=== PATIENT | female | born 1945 | race Asian ===

== ENCOUNTER 2018-05-01 06:45 | Day surgery (SDC) | payer MEDICARE, OTHER ==
[~2018-05-01] VITALS: Ht 149.9 cm; Wt 60.0 kg
[~2018-05-01 06:45] MED LIST: DICLOFENAC SODIUM 0.1% 2.5 ML OPHTHALMIC SOLUTION ONE; FOLIC ACID PO; LEVO75 PO; METO25XL PO; MOXIFLOXACIN HCL 0.5% 3 ML OPHTHALMIC SOLUTION ONE; OS500 PO; PHENYLEPHRINE HCL 2.5% 2 ML OPHTHALMIC SOLUTION ONE; PRAV80TA PO; PREDAOS OS; RANO500T3 PO; RINGERS SOLUTION,LACTATED 500 ML IV ONE; SITA1TAB2 PO; TROPICAMIDE 1% 2 ML OPHTHALMIC SOLUTION ONE; VALS80TA2 PO
[2018-05-01] MEDS ORDERED: LIDOCAINE/PF 1% 2 ML VIAL INJ ONE (06:46)
[2018-05-01] MEDS ORDERED: POVIDONE-IODINE 10% 15 ML SOLUTION UD TP ONE (06:46)
[2018-05-01] MEDS ORDERED: HYALURONATE SOD/CHONDROITIN SOD 0.5 ML VIAL IO ONE (06:46)
[2018-05-01] MEDS ORDERED: DEXAMETHASONE SOD PHOS 4 MG/ML VIAL IVP ONE (06:46)
[2018-05-01] MEDS ORDERED: TETRACAINE HCL VISCOUS 0.5% 0.6 ML OPHTHALMIC SOLUTION OS ONE (06:46)
[2018-05-01] MEDS ORDERED: HYALURONATE SODIUM 12 MG/ML 0.8 ML SYRINGE IO ONE (06:46)
[2018-05-01] MEDS ORDERED: DICLOFENAC SODIUM 0.1% 2.5 ML OPHTHALMIC SOLUTION OD ONE (07:30)
[2018-05-01] MEDS ORDERED: MOXIFLOXACIN HCL 0.5% 3 ML OPHTHALMIC SOLUTION OD ONE (07:30)
[2018-05-01] MEDS ORDERED: RINGERS SOLUTION,LACTATED 500 ML IV ONE (07:30)
[2018-05-01] MEDS ORDERED: SITA100 PO (08:08)
[2018-05-01] MEDS ORDERED: LORA10TA7 PO (08:08)
[2018-05-01 08:19] LABS: GLUCOMETER DEV NAME(LOC) SDS 5; GLUCOSE,POINT OF CARE 146 MG/DL (70-110)
[2018-05-01] MEDS: PHENYLEPHRINE HCL 2.5% 2 ML OPHTHALMIC SOLUTION OD SCH ×2 (08:21→08:27)
[2018-05-01] MEDS: TROPICAMIDE 1% 2 ML OPHTHALMIC SOLUTION OD SCH ×2 (08:21→08:27)
[2018-05-01] MEDS ORDERED: MIDAZOLAM HCL 2 MG/2 ML VIAL IVP ONE (12:00)
[2018-05-01] MEDS ORDERED: FentaNYL CITRATE-PF 100 MCG/2 ML VIAL IVP ONE (12:00)
== END 2018-05-01 11:10 | disposition home or self-care (01) ==
LOC: SURGERY 06:45
PROVIDERS: ATTEND Specialist
DX: E11.36 Type 2 diabetes mellitus with diabetic cataract (principal); H25.011 Cortical age-related cataract, right eye; I10 Essential (primary) hypertension; E89.0 Postprocedural hypothyroidism; M19.90 Unspecified osteoarthritis, unspecified site; E78.00 Pure hypercholesterolemia, unspecified; I44.0 Atrioventricular block, first degree; Z90.49 Acquired absence of other specified parts of digestive tract; Z98.890 Other specified postprocedural states; Z79.899 Other long term (current) drug therapy
CPT/HCPCS: 65785; 66984; 82962; 93005; C1780; J1100; J2250; J3010; J3490 ×2; J7120

== ENCOUNTER 2018-10-08 18:03 | Emergency (ER) | payer MEDICARE, OTHER ==
[~2018-10-08] VITALS: Ht 154.9 cm; Wt 65.9 kg
[~2018-10-08 18:03] MED LIST changes: -DICLOFENAC SODIUM 0.1% 2.5 ML OPHTHALMIC SOLUTION ONE; +LORA10TA7 PO; -MOXIFLOXACIN HCL 0.5% 3 ML OPHTHALMIC SOLUTION ONE; -PHENYLEPHRINE HCL 2.5% 2 ML OPHTHALMIC SOLUTION ONE; -RINGERS SOLUTION,LACTATED 500 ML IV ONE; +SITA100 PO; -SITA1TAB2 PO; -TROPICAMIDE 1% 2 ML OPHTHALMIC SOLUTION ONE
[2018-10-08] MEDS ORDERED: ALBUTEROL SULFATE 2.5 MG/0.5 ML NEB SOLUTION NEB ONE (18:30)
[2018-10-08] MEDS ORDERED: IPRATROPIUM BROMIDE 0.5 MG/2.5 ML NEB SOLUTION NEB ONE (18:30)
[2018-10-08 21:20] LABS: BASOPHILS % (AUTO) 0.4 % (0.0-2.0); HEMATOCRIT 37.9 % (36-46); HEMOGLOBIN 12.9 g/dL (12.0-16.0); LYMPHOCYTES # (AUTO) 1.6 K/uL (1.0-4.8); LYMPHOCYTES % (AUTO) 19.3 % (22.0-44.0); MEAN CORPUSCULAR HEMOGLOBIN 34.6 pg (26.0-34.0); MEAN CORPUSCULAR HGB CONC 34.1 G/dL (31.0-37.0); MEAN CORPUSCULAR VOLUME 101 fL (80-100); MONOCYTES # (AUTO) 0.6 K/uL (0.1-1.0); MONOCYTES % (AUTO) 7.7 % (2.0-9.0); NEUTROPHILS # (AUTO) 4.5 K/uL (1.8-7.7); NEUTROPHILS % (AUTO) 55.7 % (40.0-70.0); PLATELET COUNT (AUTO) 196 K/uL (150-450); RED BLOOD CELL COUNT(AUTO) 3.74 MIL/uL (4.00-5.20); RED CELL DISTRIBUTION WIDTH 14.2 % (11.5-14.5)
[2018-10-08 21:24] LABS: EOSINOPHILS % (AUTO) 16.9 % (1.0-6.0)
[2018-10-08 21:58] LABS: CALCIUM, TOTAL 9.7 mg/dL (8.8-10.5); CREATININE 1.62 mg/dL (0.60-1.30); POTASSIUM 4.5 mmol/L (3.5-5.1)
[2018-10-08 22:22] LABS: ALBUMIN 4.3 g/dL (3.4-5.0); BILIRUBIN,TOTAL 0.4 mg/dL (0.1-1.0); TOTAL PROTEIN, SERUM 9.1 g/dL (6.4-8.2)
[2018-10-08 22:47] VITALS: BP 120/63
== END 2018-10-08 23:10 | disposition home or self-care (01) ==
LOC: EMS 18:04
DX: J40 Bronchitis, not specified as acute or chronic (principal); E11.9 Type 2 diabetes mellitus without complications; E78.00 Pure hypercholesterolemia, unspecified; I10 Essential (primary) hypertension; Z79.84 Long term (current) use of oral hypoglycemic drugs; Z79.899 Other long term (current) drug therapy
CPT/HCPCS: 93005; 94640

== ENCOUNTER 2022-03-16 16:53 | Emergency (ER) | payer MEDICARE, OTHER ==
[~2022-03-16] VITALS: Ht 157.5 cm; Wt 54.5 kg
[2022-03-16 18:29] LABS: BASOPHILS % (AUTO) 0.4 % (0.0-2.0); HEMATOCRIT 38.2 % (36-46); HEMOGLOBIN 12.9 g/dL (12.0-16.0); LYMPHOCYTES # (AUTO) 1.4 K/uL (1.0-4.8); LYMPHOCYTES % (AUTO) 20.4 % (22.0-44.0); MEAN CORPUSCULAR HEMOGLOBIN 34.6 pg (26.0-34.0); MEAN CORPUSCULAR HGB CONC 33.8 G/dL (31.0-37.0); MEAN CORPUSCULAR VOLUME 102 fL (80-100); MONOCYTES # (AUTO) 0.7 K/uL (0.1-1.0); NEUTROPHILS # (AUTO) 3.2 K/uL (1.8-7.7); NEUTROPHILS % (AUTO) 47.3 % (40.0-70.0); PLATELET COUNT (AUTO) 187 K/uL (150-450); RED BLOOD CELL COUNT(AUTO) 3.73 MIL/uL (4.00-5.20); RED CELL DISTRIBUTION WIDTH 13.4 % (11.5-14.5)
[2022-03-16 18:30] LABS: EOSINOPHILS % (AUTO) 20.9 % (1.0-6.0)
[2022-03-16 18:40] LABS: BILIRUBIN,TOTAL 0.6 mg/dL (0.1-1.0); CALCIUM, TOTAL 9.2 mg/dL (8.8-10.5); CREATININE 1.86 mg/dL (0.60-1.30); POTASSIUM 4.5 mmol/L (3.5-5.1); TOTAL PROTEIN, SERUM 8.3 g/dL (6.4-8.2)
[2022-03-16] MEDS ORDERED: INSULIN REGULAR, HUMAN 100 UNITS/ML IVP ONE (19:00)
[2022-03-16] MEDS ORDERED: SODIUM CHLORIDE 0.9% 500 ML IV ONE (19:00)
[2022-03-16 20:57] VITALS: BP 138/67
== END 2022-03-16 21:15 | disposition home or self-care (01) ==
LOC: EMS 17:13
DX: S20.212A Contusion of left front wall of thorax, initial encounter (principal); S00.83XA Contusion of other part of head, initial encounter; E11.9 Type 2 diabetes mellitus without complications; E78.00 Pure hypercholesterolemia, unspecified; I10 Essential (primary) hypertension; V87.8XXA Person injured in other specified noncollision transport accidents involving motor vehicle (traffic), initial encounter; Y93.89 Activity, other specified; Y92.89 Other specified places as the place of occurrence of the external cause; Y99.8 Other external cause status
CPT/HCPCS: 99285; 96374; 70450; 96361; 80053; 85025; 36415; 71101; J1815; J7040

== ENCOUNTER 2023-01-16 17:19 | Emergency (ER) | payer OTHER ==
[~2023-01-16] VITALS: Ht 152.4 cm; Wt 56.8 kg
[~2023-01-16 17:19] MED LIST changes: +RANO500T27 PO; -RANO500T3 PO
[2023-01-16 17:33] VITALS: TEMP 97.8
[2023-01-16] MEDS ORDERED: SODIUM CHLORIDE 0.9% 1,000 ML IV ONE (18:00)
[2023-01-16] MEDS ORDERED: CYCLOBENZAPRINE HCL 10 MG TABLET PO ONE (18:00)
[2023-01-16] MEDS ORDERED: KETOROLAC TROMETHAMINE 30 MG/ML VIAL IVP ONE (18:00)
[2023-01-16] MEDS ORDERED: LIDOCAINE 5% TRANSDERMAL PATCH TD ONE (18:00)
[2023-01-16] MEDS ORDERED: PRAV80TA21 PO (18:04)
[2023-01-16] MEDS ORDERED: DOCU-349 PO (18:04)
[2023-01-16] MEDS ORDERED: ASPI-1444 PO (18:04)
[2023-01-16] MEDS ORDERED: FOLI-130 PO (18:04)
[2023-01-16] MEDS ORDERED: EMPA25TA3 PO (18:04)
[2023-01-16] MEDS ORDERED: METO-408 PO (18:04)
[2023-01-16] MEDS ORDERED: MONT-40 PO (18:04)
[2023-01-16] MEDS ORDERED: BISA10SU11 PR (18:04)
[2023-01-16] MEDS ORDERED: VALS40TA11 PO (18:04)
[2023-01-16] MEDS ORDERED: GABA-529 PO (18:04)
[2023-01-16] MEDS ORDERED: SODI650T PO (18:04)
[2023-01-16 18:31] LABS: CREATININE 1.72 mg/dL (0.60-1.30); POTASSIUM 4.2 mmol/L (3.5-5.1)
[2023-01-16] MEDS ORDERED: INSULIN REGULAR, HUMAN 100 UNITS/ML IVP ONE (18:45)
[2023-01-16 19:56] LABS: GLUCOMETER DEV NAME(LOC) ER.6
[2023-01-16] MEDS ORDERED: ACET-3385 PO (20:02)
[2023-01-16] MEDS ORDERED: CYCL-448 PO (20:02)
[2023-01-16] MEDS ORDERED: LIDO700A15 TP (20:02)
[2023-01-16 20:12] VITALS: BP 136/69; PULSE 78; RESP 21
== END 2023-01-16 20:23 | disposition home or self-care (01) ==
LOC: EMS 17:19
DX: M54.50 Low back pain, unspecified (principal); E11.65 Type 2 diabetes mellitus with hyperglycemia; E78.00 Pure hypercholesterolemia, unspecified; I10 Essential (primary) hypertension
CPT/HCPCS: 99284; 96374; 96361; 80048; 82962; 36415; 72100; J1885; J7030; J1815

== ENCOUNTER 2024-06-20 18:55 | Inpatient (IN) | payer OTHER ==
[~2024-06-20] VITALS: Ht 149.9 cm; Wt 60.5 kg
[~2024-06-20 18:55] MED LIST changes: +ACET-3385 PO; +ASPI-1444 PO; +ATROPINE SULFATE 0.1 MG/ML 10 ML SYRINGE IVP ONE; +BISA10SU11 PR; +CYCL-448 PO; +DOCU-349 PO; +DOPamine HCL/D5W 400 MG/250 ML IV BAG IV ONE; +EMPA25TA3 PO; +FOLI-130 PO; -FOLIC ACID PO; +GABA-529 PO; +LIDO700A15 TP; +METO-408 PO; -METO25XL PO; +MONT-40 PO; -PRAV80TA PO; +PRAV80TA21 PO; -PREDAOS OS; +SODI650T PO; +SODIUM BICARBONATE [ADULT] 8.4% 50 MEQ/50 ML SYRINGE IVP ONE; +VALS40TA11 PO; -VALS80TA2 PO
[2024-06-20 19:32] LABS: BASOPHILS % (AUTO) 0.5 % (0.0-2.0); EOSINOPHILS % (AUTO) 0.1 % (1.0-6.0); HEMATOCRIT 36.4 % (36-46); HEMOGLOBIN 11.6 g/dL (12.0-16.0); LYMPHOCYTES # (AUTO) 1.4 K/uL (1.0-4.8); LYMPHOCYTES % (AUTO) 21.1 % (22.0-44.0); MEAN CORPUSCULAR HEMOGLOBIN 33.5 pg (26.0-34.0); MEAN CORPUSCULAR VOLUME 105 fL (80-100); MONOCYTES # (AUTO) 0.3 K/uL (0.1-1.0); MONOCYTES % (AUTO) 5.2 % (2.0-9.0); NEUTROPHILS # (AUTO) 4.7 K/uL (1.8-7.7); NEUTROPHILS % (AUTO) 73.1 % (40.0-70.0); PLATELET COUNT (AUTO) 184 K/uL (150-450); RED BLOOD CELL COUNT(AUTO) 3.47 MIL/uL (4.00-5.20); RED CELL DISTRIBUTION WIDTH 14.8 % (11.5-14.5); WHITE BLOOD COUNT (AUTO) 6.4 K/uL (4.5-11.0)
[2024-06-20] MEDS: 0.9% SODIUM CHLORIDE 10 ML SYRINGE IVP PRN (19:50)
[2024-06-20] MEDS: SODIUM CHLORIDE 0.9% 1,550 ML IV ONE (19:51)
[2024-06-20 19:52] LABS: ALBUMIN 3.3 g/dL (3.4-5.0); BILIRUBIN,DIRECT 1.1 mg/dL (0.00-0.20); BILIRUBIN,TOTAL 2.2 mg/dL (0.1-1.0); CALCIUM, TOTAL 8.1 mg/dL (8.8-10.5); CREATININE 2.89 mg/dL (0.60-1.30); POTASSIUM 5.4 mmol/L (3.5-5.1); TOTAL PROTEIN, SERUM 6.8 g/dL (6.4-8.2)
[2024-06-20] MEDS: CALCIUM CHLORIDE 100 MG/ML 10 ML VIAL IVP ONE (20:10)
[2024-06-20 20:26] LABS: APPEARANCE,URINE CLEAR (CLEAR); BILIRUBIN,URINE NEGATIVE (NEGATIVE); COLOR,URINE YELLOW (YELLOW); GLUCOSE, URINE (UA) >=1000 mg/dL (NEGATIVE); KETONES,URINE NEGATIVE (NEGATIVE); LEUKOCYTE ESTERASE ,URINE NEGATIVE (NEGATIVE); NITRATE,URINE NEGATIVE (NEGATIVE); OCCULT BLOOD,URINE NEGATIVE (NEGATIVE); PROTEIN,URINE 30-70 mg/dL (NEGATIVE); SPECIFIC GRAVITIY, URINE 1.025 (1.003-1.030); UROBILINOGEN,URINE <=1.0 mg/dL (<=1.0)
[2024-06-20] MEDS ORDERED: HYDROCORTISONE SOD SUCC 100 MG/2 ML VIAL IVP ONE (20:45)
[2024-06-20] MEDS ORDERED: ATROPINE SULFATE 1 MG/ML VIAL IVP ONE (20:45)
[2024-06-20 20:48] LABS: LACTIC ACID 10.4 mmol/L (0.4-2.0)
[2024-06-20 21:00] VITALS: PULSE 61; RESP 20; O2SAT 97
[2024-06-20 21:10] LABS: BACTERIA,URINE None Seen /HPF (None Seen); RBC,URINE 0-2 /HPF (0-2); WBC,URINE 0-2 /HPF (0-5)
[2024-06-20] MEDS: ATROPINE SULFATE 0.1 MG/ML 10 ML SYRINGE IVP ONE (21:12)
[2024-06-20] MEDS: NOREPINEPHRINE 8 MG/0.9 % NACL 250 ML IV PRN (21:13)
[2024-06-20] MEDS ORDERED: ACETAMINOPHEN 325 MG TABLET PO PRN (21:15)
[2024-06-20] MEDS: SODIUM BICARBONATE [ADULT] 8.4% 50 MEQ/50 ML SYRINGE IVP ONE (21:17)
[2024-06-20] MEDS: HYDROCORTISONE SOD SUCC 250 MG/2 ML VIAL IVP ONE (21:19)
[2024-06-20] MEDS: SODIUM CHLORIDE 0.9% 1,000 ML IV ONE (21:21)
[2024-06-20] MEDS: INSULIN REGULAR, HUMAN 100 UNITS/ML IVP ONE (21:31)
[2024-06-20] MEDS: CefTRIAXone 1 GM/DEXTROSE 50 ML IV SCH (21:32)
[2024-06-20] MEDS: DOPamine 400MG/D5W[STANDARD] 250 ML IV PRN (21:57)
[2024-06-20 22:03] LABS: TROPONIN I-HIGH SENSITIVITY 12 ng/L (<51)
[2024-06-20] MEDS: CHLORHEXIDINE GLUCONATE 2% TOWELETTE [2'S/6'S] TP SCH (22:27)
[2024-06-20 22:55] VITALS: PULSE 48; RESP 20; O2SAT 95
[2024-06-20 23:10] LABS: ABG BASE EXCESS -19.1 mmol/L (-2.0-3.0); ABG CARBOXYHEMOGLOBIN 0.5 % (0.5-1.5); ABG HCO3 11.4 mmol/L (21.0-28.0); ABG OXYGEN CONTENT 17.6 mL/dL (15.0-23.0); ABG OXYGEN SATURATION 99.9 % (94.0-98.0); ABG OXYHEMOGLOBIN 98.4 % (94.0-98.0); ABG PCO2 20 mmHg (32.0-45.0); ABG PH 7.258 (7.350-7.450); ABG TOTAL HEMOGLOBIN 11.6 G/dL (12.0-16.0); SOURCE, BLOOD GAS ARTERIAL; TEMPERATURE, FAHRENHEIT, BG 88.5 FAHREN (96.0-98.6)
[2024-06-20 23:43] LABS: PO2, ARTERIAL BG 511.6 mmHg (83.0-108.0); SITE, BLOOD GAS ARTERIAL LINE
[2024-06-20 23:44] LABS: ABG A-A DIFF O2 194.5 mmHg (10-20.0); O2 DEVICE,BLOOD GAS VENT (ROOM AIR); PEEP,BG 5 cm H2O; VT, ABG 380 ml
[2024-06-20] MEDS: LEVOTHYROXINE SODIUM 100 MCG VIAL IVP ONE (23:44)
[2024-06-20] MEDS: SODIUM BICARBONATE 75 MEQ in SODIUM CHLORIDE 0.45% 1,000 ML IV SCH (23:54)
[2024-06-21] VITALS (14 sets, daily range): BP systolic 106–130; BP diastolic 41–52; PULSE 64–84; RESP 20–21; TEMP 95–98; O2SAT 83–100
[2024-06-21 00:06] LABS: CALCIUM, TOTAL 7.4 mg/dL (8.8-10.5); CREATININE 2.42 mg/dL (0.60-1.30); POTASSIUM 3.9 mmol/L (3.5-5.1)
[2024-06-21] MEDS: PIPERACILLIN SODIUM/TAZOBACTAM 2.25 GM in DEXTROSE 5%-WATER 50 ML IV SCH (03:18)
[2024-06-21] MEDS: VASOPRESSIN 40 UNITS in DEXTROSE 5%-WATER 98 ML IV PRN (06:33)
[2024-06-21 07:40] LABS: BASOPHILS % (AUTO) 0.5 % (0.0-2.0); EOSINOPHILS % (AUTO) 0 % (1.0-6.0); HEMATOCRIT 35.7 % (36-46); HEMOGLOBIN 11.8 g/dL (12.0-16.0); LYMPHOCYTES # (AUTO) 0.7 K/uL (1.0-4.8); LYMPHOCYTES % (AUTO) 3.9 % (22.0-44.0); MEAN CORPUSCULAR HEMOGLOBIN 33.5 pg (26.0-34.0); MEAN CORPUSCULAR HGB CONC 33.1 G/dL (31.0-37.0); MEAN CORPUSCULAR VOLUME 101 fL (80-100); MONOCYTES # (AUTO) 1.6 K/uL (0.1-1.0); MONOCYTES % (AUTO) 9.3 % (2.0-9.0); NEUTROPHILS # (AUTO) 14.9 K/uL (1.8-7.7); PLATELET COUNT (AUTO) 216 K/uL (150-450); RED BLOOD CELL COUNT(AUTO) 3.52 MIL/uL (4.00-5.20); RED CELL DISTRIBUTION WIDTH 14.3 % (11.5-14.5); WHITE BLOOD COUNT (AUTO) 17.3 K/uL (4.5-11.0)
[2024-06-21 07:41] LABS: NEUTROPHILS % (AUTO) 86.3 % (40.0-70.0)
[2024-06-21 07:52] LABS: CALCIUM, TOTAL 7.7 mg/dL (8.8-10.5); CREATININE 2.44 mg/dL (0.60-1.30); MAGNESIUM 2.5 mg/dL (1.80-2.40); POTASSIUM 3.8 mmol/L (3.5-5.1)
[2024-06-21] MEDS: PROPOFOL 1000 MG/ISO-OSM 100 ML IV PRN (08:28)
[2024-06-21] MEDS: FentaNYL CIT 1000MCG/0.9% NACL 100 ML IV PRN (08:28)
[2024-06-21] MEDS ORDERED: NOREPINEPHRINE 8 MG/0.9 % NACL 250 ML IV ONE (09:02)
[2024-06-21] MEDS ORDERED: SODIUM CHLORIDE 0.9% 250 ML IV ONE ×2 (09:02→23:48)
[2024-06-21] MEDS: NOREPINEPHRINE 8 MG/0.9 % NACL 250 ML IV PRN (09:38)
[2024-06-21] MEDS: PANTOPRAZOLE SODIUM 40 MG/VIAL IVP SCH (09:38)
[2024-06-21] MEDS: SODIUM CHLORIDE 0.9% 500 ML IV ONE (09:38)
[2024-06-21] MEDS: DOCUSATE SODIUM 100 MG CAPSULE PO SCH (09:38)
[2024-06-21 10:06] LABS: RBC MORPHOLOGY COMMENT ABNORMAL RBC MORPH
[2024-06-21] MEDS ORDERED: INSULIN GLARGINE,HUM.REC.ANLOG 100 UNITS/ML SQ SCH (11:15)
[2024-06-21] MEDS ORDERED: DEXTROSE 50%-WATER 25 GM/50 ML SYRINGE IVP PRN (11:15)
[2024-06-21] MEDS ORDERED: INSULIN LISPRO 100 UNITS/ML SQ PRN (11:15)
[2024-06-21 13:48] LABS: ALBUMIN 3.2 g/dL (3.4-5.0)
[2024-06-21] MEDS: INSULIN REGULAR, HUMAN 100 UNITS in SODIUM CHLORIDE 0.9% 99 ML IV PRN (13:58)
[2024-06-21 14:11] LABS: GLUCOMETER DEV NAME(LOC) ICUN.5; GLUCOSE,POINT OF CARE 357 MG/DL (70-110)
[2024-06-21 14:17] LABS: ABG A-A DIFF O2 394.4 mmHg (10-20.0); ABG BASE EXCESS -12.6 mmol/L (-2.0-3.0); ABG CARBOXYHEMOGLOBIN 0.8 % (0.5-1.5); ABG HCO3 15.7 mmol/L (21.0-28.0); ABG METHEMOGLOBIN 0.8 % (0.0-1.5); ABG OXYGEN CONTENT 17.8 mL/dL (15.0-23.0); ABG OXYGEN SATURATION 99.7 % (94.0-98.0); ABG OXYHEMOGLOBIN 98.1 % (94.0-98.0); ABG PCO2 28 mmHg (32.0-45.0); ABG PH 7.304 (7.350-7.450); ABG TOTAL HEMOGLOBIN 12.3 G/dL (12.0-16.0); O2 DEVICE,BLOOD GAS VENTILATOR (ROOM AIR); PEEP,BG 5 cm H2O; PO2, ARTERIAL BG 336.8 mmHg (83.0-108.0); SITE, BLOOD GAS ARTERIAL LINE; SOURCE, BLOOD GAS ARTERIAL; TEMPERATURE, FAHRENHEIT, BG 97.5 FAHREN (96.0-98.6); VT, ABG 380 ml
[2024-06-21 16:13] LABS: ABG BASE EXCESS -13.5 mmol/L (-2.0-3.0); ABG CARBOXYHEMOGLOBIN 0.5 % (0.5-1.5); ABG HCO3 14.8 mmol/L (21.0-28.0); ABG METHEMOGLOBIN 0.8 % (0.0-1.5); ABG OXYGEN CONTENT 16.5 mL/dL (15.0-23.0); ABG OXYGEN SATURATION 98.7 % (94.0-98.0); ABG OXYHEMOGLOBIN 97.4 % (94.0-98.0); ABG PCO2 33 mmHg (32.0-45.0); ABG PH 7.242 (7.350-7.450); ABG TOTAL HEMOGLOBIN 11.9 G/dL (12.0-16.0); PO2, ARTERIAL BG 133.2 mmHg (83.0-108.0); SITE, BLOOD GAS ARTERIAL LINE; SOURCE, BLOOD GAS ARTERIAL; TEMPERATURE, FAHRENHEIT, BG 97.8 FAHREN (96.0-98.6)
[2024-06-21 16:14] LABS: ABG A-A DIFF O2 259.2 mmHg (10-20.0); O2 DEVICE,BLOOD GAS VENTILATOR (ROOM AIR); PEEP,BG 5 cm H2O; VT, ABG 380 ml
[2024-06-21] MEDS: DOPamine 400MG/D5W[STANDARD] 250 ML IV PRN (17:07)
[2024-06-21 18:45] LABS: GLUCOMETER DEV NAME(LOC) ICUN.5; GLUCOSE,POINT OF CARE 344 MG/DL (70-110)
[2024-06-21 18:45] LABS: GLUCOMETER DEV NAME(LOC) ICUN.5; GLUCOSE,POINT OF CARE 295 MG/DL (70-110)
[2024-06-21 18:45] LABS: GLUCOMETER DEV NAME(LOC) ICU.S6; GLUCOSE,POINT OF CARE 275 MG/DL (70-110)
[2024-06-21 18:45] LABS: GLUCOMETER DEV NAME(LOC) ICU.S6; GLUCOSE,POINT OF CARE 343 MG/DL (70-110)
[2024-06-21] MEDS: DOCUSATE SODIUM 100 MG/10 ML LIQUID UDCUP GT SCH (22:05)
[2024-06-21] MEDS: HEPARIN SODIUM,PORCINE 5,000 UNITS/ML VIAL SQ SCH (22:58)
[2024-06-21 23:29] LABS: INFLUENZA A-RTPCR,COMBO NEGATIVE (NEGATIVE); INFLUENZA B-RTPCR,COMBO NEGATIVE (NEGATIVE); RESPIRATORY SYNCYTIAL VRS-PCR NEGATIVE (NEGATIVE); SARS COVID19 RTPCR, COMBO NEGATIVE (NEGATIVE)
[2024-06-22] VITALS (13 sets, daily range): BP systolic 127–137; BP diastolic 39–45; PULSE 69–97; RESP 20; TEMP 97.7–98.7; O2SAT 94–100
[2024-06-22 00:36] LABS: GLUCOMETER DEV NAME(LOC) ICUN.5; GLUCOSE,POINT OF CARE 240 MG/DL (70-110)
[2024-06-22 00:36] LABS: GLUCOMETER DEV NAME(LOC) ICUN.5; GLUCOSE,POINT OF CARE 177 MG/DL (70-110)
[2024-06-22 00:36] LABS: GLUCOMETER DEV NAME(LOC) ICUN.5; GLUCOSE,POINT OF CARE 130 MG/DL (70-110)
[2024-06-22 00:36] LABS: GLUCOMETER DEV NAME(LOC) ICUN.5; GLUCOSE,POINT OF CARE 141 MG/DL (70-110)
[2024-06-22 00:36] LABS: GLUCOMETER DEV NAME(LOC) ICUN.5; GLUCOSE,POINT OF CARE 128 MG/DL (70-110)
[2024-06-22 00:36] LABS: GLUCOMETER DEV NAME(LOC) ICUN.5; GLUCOSE,POINT OF CARE 280 MG/DL (70-110)
[2024-06-22 03:36] LABS: GLUCOMETER DEV NAME(LOC) ICU.S6; GLUCOSE,POINT OF CARE 98 MG/DL (70-110)
[2024-06-22 03:36] LABS: GLUCOMETER DEV NAME(LOC) ICU.S6; GLUCOSE,POINT OF CARE 133 MG/DL (70-110)
[2024-06-22 03:51] LABS: GLUCOMETER DEV NAME(LOC) ICUN.5; GLUCOSE,POINT OF CARE 135 MG/DL (70-110)
[2024-06-22 04:46] LABS: GLUCOMETER DEV NAME(LOC) ICUN.5; GLUCOSE,POINT OF CARE 133 MG/DL (70-110)
[2024-06-22 05:54] LABS: BASOPHILS % (AUTO) 0.1 % (0.0-2.0); EOSINOPHILS % (AUTO) 0 % (1.0-6.0); HEMATOCRIT 32.8 % (36-46); HEMOGLOBIN 10.9 g/dL (12.0-16.0); LYMPHOCYTES # (AUTO) 1.1 K/uL (1.0-4.8); MEAN CORPUSCULAR HEMOGLOBIN 33.3 pg (26.0-34.0); MEAN CORPUSCULAR HGB CONC 33.3 G/dL (31.0-37.0); MEAN CORPUSCULAR VOLUME 100 fL (80-100); MONOCYTES # (AUTO) 1.4 K/uL (0.1-1.0); MONOCYTES % (AUTO) 9.5 % (2.0-9.0); NEUTROPHILS # (AUTO) 12.6 K/uL (1.8-7.7); NEUTROPHILS % (AUTO) 83.4 % (40.0-70.0); PLATELET COUNT (AUTO) 171 K/uL (150-450); RED BLOOD CELL COUNT(AUTO) 3.27 MIL/uL (4.00-5.20); RED CELL DISTRIBUTION WIDTH 14.4 % (11.5-14.5); WHITE BLOOD COUNT (AUTO) 15.1 K/uL (4.5-11.0)
[2024-06-22] MEDS: INSULIN REGULAR, HUMAN 100 UNITS/ML SQ PRN (06:08)
[2024-06-22 06:11] LABS: CALCIUM, TOTAL 7.6 mg/dL (8.8-10.5); CREATININE 1.72 mg/dL (0.60-1.30); MAGNESIUM 2.2 mg/dL (1.80-2.40); PHOSPHORUS 3.6 mg/dL (2.5-4.9); POTASSIUM 3.7 mmol/L (3.5-5.1)
[2024-06-22 06:31] LABS: GLUCOMETER DEV NAME(LOC) ICUN.5; GLUCOSE,POINT OF CARE 146 MG/DL (70-110)
[2024-06-22] MEDS ORDERED: DEXTROSE 50%-WATER 25 GM/50 ML SYRINGE IVP PRN (10:30)
[2024-06-22] MEDS: LEVOTHYROXINE SODIUM 75 MCG TABLET PO SCH (11:11)
[2024-06-22] MEDS: HYDROCORTISONE SOD SUCC 100 MG/2 ML VIAL IVP SCH (12:53)
[2024-06-22] MEDS ORDERED: BACL10TA PO (13:22)
[2024-06-22] MEDS ORDERED: INSU3INS3 SQ (13:22)
[2024-06-22] MEDS ORDERED: ALBU18HF12 IH (13:22)
[2024-06-22] MEDS ORDERED: AMLO10TA55 PO (13:22)
[2024-06-22] MEDS ORDERED: ATOR40TA71 PO (13:22)
[2024-06-22] MEDS ORDERED: FINE10TA PO (13:22)
[2024-06-22] MEDS ORDERED: DAPA10TA7 PO (13:22)
[2024-06-22] MEDS ORDERED: DULA0.75 SQ (13:22)
[2024-06-22] MEDS ORDERED: MEBROFENIN TC99M/MCL ISOTOPE 1 EA INJ INJ ONE (13:40)
[2024-06-22] MEDS: SODIUM CHLORIDE 0.45% 1,000 ML IV SCH (15:31)
[2024-06-22 17:35] LABS: GLUCOMETER DEV NAME(LOC) ICU.S6; GLUCOSE,POINT OF CARE 107 MG/DL (70-110)
[2024-06-22 17:35] LABS: GLUCOMETER DEV NAME(LOC) ICU.S6; GLUCOSE,POINT OF CARE 107 MG/DL (70-110)
[2024-06-22 21:30] LABS: GLUCOMETER DEV NAME(LOC) ICU.S6; GLUCOSE,POINT OF CARE 109 MG/DL (70-110)
[2024-06-22] MEDS: INSULIN LISPRO 100 UNITS/ML SQ PRN (23:57)
[2024-06-23] VITALS (13 sets, daily range): BP systolic 118–134; BP diastolic 42–49; PULSE 72–88; RESP 20–22; TEMP 96.9–98.5; O2SAT 97–100
[2024-06-23 03:51] LABS: GLUCOMETER DEV NAME(LOC) ICUN.5; GLUCOSE,POINT OF CARE 145 MG/DL (70-110)
[2024-06-23 06:16] LABS: GLUCOMETER DEV NAME(LOC) ICU.S6; GLUCOSE,POINT OF CARE 108 MG/DL (70-110)
[2024-06-23 06:58] LABS: BASOPHILS % (AUTO) 0.3 % (0.0-2.0); EOSINOPHILS % (AUTO) 0 % (1.0-6.0); HEMATOCRIT 29.2 % (36-46); LYMPHOCYTES # (AUTO) 0.5 K/uL (1.0-4.8); LYMPHOCYTES % (AUTO) 4.2 % (22.0-44.0); MEAN CORPUSCULAR HEMOGLOBIN 34.3 pg (26.0-34.0); MEAN CORPUSCULAR HGB CONC 34.4 G/dL (31.0-37.0); MEAN CORPUSCULAR VOLUME 100 fL (80-100); MONOCYTES # (AUTO) 0.6 K/uL (0.1-1.0); MONOCYTES % (AUTO) 4.8 % (2.0-9.0); NEUTROPHILS # (AUTO) 10.8 K/uL (1.8-7.7); PLATELET COUNT (AUTO) 147 K/uL (150-450); RED BLOOD CELL COUNT(AUTO) 2.93 MIL/uL (4.00-5.20); RED CELL DISTRIBUTION WIDTH 14.2 % (11.5-14.5); WHITE BLOOD COUNT (AUTO) 11.9 K/uL (4.5-11.0)
[2024-06-23 07:02] LABS: NEUTROPHILS % (AUTO) 90.7 % (40.0-70.0)
[2024-06-23 07:20] LABS: ALBUMIN 2.2 g/dL (3.4-5.0); BILIRUBIN,DIRECT 0.9 mg/dL (0.00-0.20); BILIRUBIN,TOTAL 1.2 mg/dL (0.1-1.0); CALCIUM, TOTAL 7.9 mg/dL (8.8-10.5); CREATININE 1.49 mg/dL (0.60-1.30); MAGNESIUM 2.4 mg/dL (1.80-2.40); PHOSPHORUS 4.1 mg/dL (2.5-4.9); POTASSIUM 3.6 mmol/L (3.5-5.1); TOTAL PROTEIN, SERUM 5.3 g/dL (6.4-8.2)
[2024-06-23] MEDS: DEXMEDETOMIDINE HCL 400 MCG in SODIUM CHLORIDE 0.9% 96 ML IV PRN (08:24)
[2024-06-23] MEDS: ASPIRIN 81 MG DR TABLET PO SCH (10:23)
[2024-06-23] MEDS: PRAVASTATIN SODIUM 40 MG TABLET PO SCH (10:25)
[2024-06-23 20:40] LABS: GLUCOMETER DEV NAME(LOC) ICU.S6; GLUCOSE,POINT OF CARE 107 MG/DL (70-110)
[2024-06-23 20:40] LABS: GLUCOMETER DEV NAME(LOC) ICU.S6; GLUCOSE,POINT OF CARE 106 MG/DL (70-110)
[2024-06-23] MEDS: MIDODRINE HCL 5 MG TABLET NG SCH (21:26)
[2024-06-23 23:42] LABS: ABG BASE EXCESS -11.7 mmol/L (-2.0-3.0); ABG CARBOXYHEMOGLOBIN 0.9 % (0.5-1.5); ABG HCO3 15.6 mmol/L (21.0-28.0); ABG METHEMOGLOBIN 0.9 % (0.0-1.5); ABG OXYGEN CONTENT 14.7 mL/dL (15.0-23.0); ABG OXYGEN SATURATION 95.2 % (94.0-98.0); ABG OXYHEMOGLOBIN 93.5 % (94.0-98.0); ABG PCO2 42 mmHg (32.0-45.0); ABG TOTAL HEMOGLOBIN 11.1 G/dL (12.0-16.0); SOURCE, BLOOD GAS ARTERIAL; TEMPERATURE, FAHRENHEIT, BG 98.6 FAHREN (96.0-98.6)
[2024-06-23 23:43] LABS: ABG PH 7.204 (7.350-7.450); SITE, BLOOD GAS ART LINE
[2024-06-23 23:44] LABS: O2 DEVICE,BLOOD GAS VENT (ROOM AIR)
[2024-06-23 23:45] LABS: PEEP,BG 5 cm H2O; VT, ABG 380 ml
[2024-06-24] VITALS (14 sets, daily range): BP systolic 103–134; BP diastolic 39–66; PULSE 76–110; RESP 24; TEMP 98–98.9; O2SAT 95–100
[2024-06-24] MEDS: SODIUM BICARBONATE [ADULT] 8.4% 50 MEQ/50 ML SYRINGE IVP ONE ×2 (00:17→09:11)
[2024-06-24 02:56] LABS: GLUCOMETER DEV NAME(LOC) ICUN.5; GLUCOSE,POINT OF CARE 117 MG/DL (70-110)
[2024-06-24 06:45] LABS: CALCIUM, TOTAL 8.1 mg/dL (8.8-10.5); CREATININE 1.6 mg/dL (0.60-1.30); MAGNESIUM 2.5 mg/dL (1.80-2.40); PHOSPHORUS 4.9 mg/dL (2.5-4.9); POTASSIUM 3.9 mmol/L (3.5-5.1)
[2024-06-24 06:54] LABS: BASOPHILS % (AUTO) 0.2 % (0.0-2.0); EOSINOPHILS % (AUTO) 0.1 % (1.0-6.0); HEMOGLOBIN 10.4 g/dL (12.0-16.0); LYMPHOCYTES # (AUTO) 0.5 K/uL (1.0-4.8); LYMPHOCYTES % (AUTO) 2.6 % (22.0-44.0); MEAN CORPUSCULAR HEMOGLOBIN 33.3 pg (26.0-34.0); MEAN CORPUSCULAR HGB CONC 32.4 G/dL (31.0-37.0); MEAN CORPUSCULAR VOLUME 103 fL (80-100); MONOCYTES # (AUTO) 1.6 K/uL (0.1-1.0); NEUTROPHILS # (AUTO) 17.9 K/uL (1.8-7.7); PLATELET COUNT (AUTO) 156 K/uL (150-450); RED BLOOD CELL COUNT(AUTO) 3.11 MIL/uL (4.00-5.20); RED CELL DISTRIBUTION WIDTH 14.7 % (11.5-14.5); WHITE BLOOD COUNT (AUTO) 20.1 K/uL (4.5-11.0)
[2024-06-24 07:00] LABS: NEUTROPHILS % (AUTO) 89.1 % (40.0-70.0)
[2024-06-24 07:11] LABS: GLUCOMETER DEV NAME(LOC) ICU.S6; GLUCOSE,POINT OF CARE 126 MG/DL (70-110)
[2024-06-24 08:16] LABS: ABG CARBOXYHEMOGLOBIN 0.5 % (0.5-1.5); ABG HCO3 14.4 mmol/L (21.0-28.0); ABG METHEMOGLOBIN 0.3 % (0.0-1.5); ABG OXYGEN CONTENT 14.8 mL/dL (15.0-23.0); ABG OXYGEN SATURATION 95.7 % (94.0-98.0); ABG OXYHEMOGLOBIN 94.9 % (94.0-98.0); ABG PCO2 31 mmHg (32.0-45.0); PO2, ARTERIAL BG 85.5 mmHg (83.0-108.0); SOURCE, BLOOD GAS ARTERIAL; TEMPERATURE, FAHRENHEIT, BG 98.2 FAHREN (96.0-98.6)
[2024-06-24 08:19] LABS: ABG PH 7.247 (7.350-7.450); O2 DEVICE,BLOOD GAS VENTILATOR (ROOM AIR); PEEP,BG 5 cm H2O; SITE, BLOOD GAS ARTERIAL LINE; SPONTANEOUS VT, BG 423 ml; VT, ABG 380 ml
[2024-06-24 12:07] LABS: SPECIMENTYPE,BODY FLUID THORAV
[2024-06-24 12:11] LABS: GLUCOMETER DEV NAME(LOC) ICU.S6; GLUCOSE,POINT OF CARE 126 MG/DL (70-110)
[2024-06-24 13:09] LABS: APPEARANCE,SPUN,BODY FLUID CLEAR (CLEAR); APPEARANCE,UNSPUN,BODY FLUID HAZY (CLEAR); BASOPHILS,BODY FLUID 0 %; COLOR,BODY FLUID LT YELLOW (LT YELLOW); EOSINOPHILS,BF (ANAL) 0 %; LYMPHOCYTES,BODY FLUID 58 %; MONOCYTES,BODY FLUID 10 %; NEUTROPHILS,BODY FLUID 5 %; TOTAL VOLUME,BODY FLUID 500 mL; WBC, BODY FLUID 69 /cu. mm.
[2024-06-24 13:10] LABS: OTHER CELLS,BODY FLUID 27; PH, BODY FLUID 7
[2024-06-24] MEDS ORDERED: DEXMEDETOMIDINE 400 MCG/NS 100 ML IV PRN (14:00)
[2024-06-24 19:09] LABS: LACTIC ACID 1.2 mmol/L (0.4-2.0)
[2024-06-24 20:15] LABS: GLUCOMETER DEV NAME(LOC) ICU.S6; GLUCOSE,POINT OF CARE 151 MG/DL (70-110)
[2024-06-25] VITALS (14 sets, daily range): BP systolic 113–156; BP diastolic 54–68; PULSE 87–112; RESP 14–29; TEMP 97.6–98.6; O2SAT 97–100
[2024-06-25 05:51] LABS: BASOPHILS % (AUTO) 0.1 % (0.0-2.0); EOSINOPHILS % (AUTO) 0.6 % (1.0-6.0); HEMATOCRIT 31.1 % (36-46); HEMOGLOBIN 10.2 g/dL (12.0-16.0); LYMPHOCYTES # (AUTO) 0.4 K/uL (1.0-4.8); LYMPHOCYTES % (AUTO) 1.8 % (22.0-44.0); MEAN CORPUSCULAR HEMOGLOBIN 33.8 pg (26.0-34.0); MEAN CORPUSCULAR HGB CONC 32.8 G/dL (31.0-37.0); MEAN CORPUSCULAR VOLUME 103 fL (80-100); MONOCYTES % (AUTO) 9.6 % (2.0-9.0); NEUTROPHILS # (AUTO) 18.6 K/uL (1.8-7.7); PLATELET COUNT (AUTO) 157 K/uL (150-450); RED BLOOD CELL COUNT(AUTO) 3.03 MIL/uL (4.00-5.20); RED CELL DISTRIBUTION WIDTH 14.8 % (11.5-14.5); WHITE BLOOD COUNT (AUTO) 21.1 K/uL (4.5-11.0)
[2024-06-25 06:09] LABS: NEUTROPHILS % (AUTO) 87.9 % (40.0-70.0)
[2024-06-25 06:12] LABS: CALCIUM, TOTAL 8.2 mg/dL (8.8-10.5); CREATININE 1.77 mg/dL (0.60-1.30); MAGNESIUM 2.6 mg/dL (1.80-2.40); POTASSIUM 3.7 mmol/L (3.5-5.1)
[2024-06-25 06:56] LABS: GLUCOMETER DEV NAME(LOC) ICUN.5; GLUCOSE,POINT OF CARE 190 MG/DL (70-110)
[2024-06-25 07:39] LABS: RBC MORPHOLOGY COMMENT DIMORPHIC RBC
[2024-06-25 09:49] LABS: ABG BASE EXCESS -13.2 mmol/L (-2.0-3.0); ABG CARBOXYHEMOGLOBIN 0.2 % (0.5-1.5); ABG HCO3 14.9 mmol/L (21.0-28.0); ABG OXYGEN CONTENT 14.6 mL/dL (15.0-23.0); ABG OXYGEN SATURATION 98.5 % (94.0-98.0); ABG OXYHEMOGLOBIN 98.3 % (94.0-98.0); ABG PCO2 32 mmHg (32.0-45.0); ABG PH 7.254 (7.350-7.450); ABG TOTAL HEMOGLOBIN 10.4 G/dL (12.0-16.0); PO2, ARTERIAL BG 135.4 mmHg (83.0-108.0); SITE, BLOOD GAS ARTERIAL LINE; SOURCE, BLOOD GAS ARTERIAL; TEMPERATURE, FAHRENHEIT, BG 97.7 FAHREN (96.0-98.6)
[2024-06-25 09:50] LABS: O2 DEVICE,BLOOD GAS VENTILATOR (ROOM AIR); PEEP,BG 5 cm H2O; PRESSURE SUPPORT, BG 5 cm H2O; SPONTANEOUS VT, BG 725 ml; VENT MODE, BG Press. Support Vent. (ROOM AIR)
[2024-06-25] MEDS: SODIUM BICARBONATE [ADULT] 8.4% 50 MEQ/50 ML SYRINGE IVP ONE (11:01)
[2024-06-25] MEDS: PANTOPRAZOLE SODIUM 40 MG/VIAL IVP SCH (11:02)
[2024-06-25 13:06] LABS: TOTAL PROTEIN,BODY FLUID,REF 1.8 g/dL
[2024-06-25] MEDS ORDERED: SODIUM CHLORIDE 0.9% 250 ML IV ONE (20:20)
[2024-06-25 20:36] LABS: GLUCOMETER DEV NAME(LOC) ICU.S6; GLUCOSE,POINT OF CARE 206 MG/DL (70-110)
[2024-06-25] MEDS: SODIUM BICARBONATE 650 MG TABLET PO SCH (21:59)
[2024-06-25 23:56] LABS: GLUCOMETER DEV NAME(LOC) ICUN.5; GLUCOSE,POINT OF CARE 204 MG/DL (70-110)
[2024-06-26] VITALS (14 sets, daily range): BP systolic 132–168; BP diastolic 53–76; PULSE 42–92; RESP 12–24; TEMP 97.4–98.4; O2SAT 97–100
[2024-06-26 01:31] LABS: GLUCOMETER DEV NAME(LOC) ICU.S6; GLUCOSE,POINT OF CARE 178 MG/DL (70-110)
[2024-06-26] MEDS: PIPERACILLIN SODIUM/TAZOBACTAM 2.25 GM in DEXTROSE 5%-WATER 50 ML IV SCH (01:31)
[2024-06-26] MEDS ORDERED: SODIUM CHLORIDE 0.9% 250 ML IV ONE ×2 (01:42→17:18)
[2024-06-26] MEDS: ONDANSETRON HCL 4 MG/2 ML VIAL IVP PRN (03:33)
[2024-06-26] MEDS ORDERED: SODIUM CHLORIDE 0.9% 500 ML IV ONE (03:44)
[2024-06-26 05:45] LABS: GLUCOMETER DEV NAME(LOC) ICUN.5; GLUCOSE,POINT OF CARE 176 MG/DL (70-110)
[2024-06-26 05:57] LABS: BASOPHILS % (AUTO) 0.7 % (0.0-2.0); HEMATOCRIT 28.2 % (36-46); HEMOGLOBIN 9.6 g/dL (12.0-16.0); LYMPHOCYTES # (AUTO) 0.3 K/uL (1.0-4.8); MEAN CORPUSCULAR HEMOGLOBIN 34.2 pg (26.0-34.0); MEAN CORPUSCULAR HGB CONC 34.1 G/dL (31.0-37.0); MEAN CORPUSCULAR VOLUME 100 fL (80-100); MONOCYTES % (AUTO) 6.2 % (2.0-9.0); NEUTROPHILS # (AUTO) 14.7 K/uL (1.8-7.7); PLATELET COUNT (AUTO) 109 K/uL (150-450); RED BLOOD CELL COUNT(AUTO) 2.81 MIL/uL (4.00-5.20); RED CELL DISTRIBUTION WIDTH 14.8 % (11.5-14.5); WHITE BLOOD COUNT (AUTO) 16.3 K/uL (4.5-11.0)
[2024-06-26 06:01] LABS: NEUTROPHILS % (AUTO) 90.1 % (40.0-70.0)
[2024-06-26 06:06] LABS: CALCIUM, TOTAL 7.5 mg/dL (8.8-10.5); CREATININE 1.62 mg/dL (0.60-1.30); MAGNESIUM 2.3 mg/dL (1.80-2.40); PHOSPHORUS 2.6 mg/dL (2.5-4.9)
[2024-06-26 06:14] LABS: LACTIC ACID 0.7 mmol/L (0.4-2.0)
[2024-06-26 06:19] LABS: POTASSIUM 2.6 mmol/L (3.5-5.1)
[2024-06-26] MEDS: POTASSIUM CHLORIDE 10% 40 MEQ/30 ML LIQUID UDCUP GT ONE (06:57)
[2024-06-26] MEDS: POTASSIUM CHL 10 MEQ/WATER 50 ML IV SCH ×2 (06:58→17:15)
[2024-06-26 10:46] LABS: ABG BASE EXCESS 0.4 mmol/L (-2.0-3.0); ABG CARBOXYHEMOGLOBIN 0.2 % (0.5-1.5); ABG HCO3 25.3 mmol/L (21.0-28.0); ABG METHEMOGLOBIN 0.3 % (0.0-1.5); ABG OXYGEN CONTENT 13.9 mL/dL (15.0-23.0); ABG OXYGEN SATURATION 97.9 % (94.0-98.0); ABG OXYHEMOGLOBIN 97.4 % (94.0-98.0); ABG PCO2 30 mmHg (32.0-45.0); ABG PH 7.508 (7.350-7.450); PO2, ARTERIAL BG 104.4 mmHg (83.0-108.0); SOURCE, BLOOD GAS ARTERIAL; TEMPERATURE, FAHRENHEIT, BG 97.9 FAHREN (96.0-98.6)
[2024-06-26 10:49] LABS: ABG A-A DIFF O2 146.4 mmHg (10-20.0); O2 DEVICE,BLOOD GAS VENTILATOR (ROOM AIR); SITE, BLOOD GAS ARTERIAL LINE
[2024-06-26 10:50] LABS: PEEP,BG 5 cm H2O; VT, ABG 380 ml
[2024-06-26 13:02] LABS: CALCIUM, TOTAL 7.5 mg/dL (8.8-10.5); CREATININE 1.51 mg/dL (0.60-1.30); POTASSIUM 3.3 mmol/L (3.5-5.1)
[2024-06-26] MEDS ORDERED: MINERAL OIL 133 ML ENEMA PR PRN (16:45)
[2024-06-26 18:40] LABS: GLUCOMETER DEV NAME(LOC) ICU.S6; GLUCOSE,POINT OF CARE 204 MG/DL (70-110)
[2024-06-26] MEDS: POLYETHYLENE GLYCOL 3350 17 GM PACKET PO SCH (20:24)
[2024-06-26 23:50] LABS: GLUCOMETER DEV NAME(LOC) ICU.S6; GLUCOSE,POINT OF CARE 172 MG/DL (70-110)
[2024-06-27] VITALS (10 sets, daily range): BP systolic 136–166; BP diastolic 30–59; PULSE 71–87; RESP 14–24; TEMP 97.2–97.5; O2SAT 100
[2024-06-27 00:56] LABS: GLUCOMETER DEV NAME(LOC) ICU.S6; GLUCOSE,POINT OF CARE 157 MG/DL (70-110)
[2024-06-27 06:30] LABS: GLUCOMETER DEV NAME(LOC) ICU.S6; GLUCOSE,POINT OF CARE 184 MG/DL (70-110)
[2024-06-27 06:34] LABS: CALCIUM, TOTAL 7.7 mg/dL (8.8-10.5); CREATININE 1.2 mg/dL (0.60-1.30)
[2024-06-27 06:45] LABS: BASOPHILS % (AUTO) 0.1 % (0.0-2.0); EOSINOPHILS % (AUTO) 0.5 % (1.0-6.0); HEMATOCRIT 30.5 % (36-46); HEMOGLOBIN 10.3 g/dL (12.0-16.0); LYMPHOCYTES # (AUTO) 0.5 K/uL (1.0-4.8); LYMPHOCYTES % (AUTO) 3.2 % (22.0-44.0); MEAN CORPUSCULAR HEMOGLOBIN 33.4 pg (26.0-34.0); MEAN CORPUSCULAR HGB CONC 33.8 G/dL (31.0-37.0); MEAN CORPUSCULAR VOLUME 99 fL (80-100); MONOCYTES # (AUTO) 0.8 K/uL (0.1-1.0); MONOCYTES % (AUTO) 5.2 % (2.0-9.0); NEUTROPHILS # (AUTO) 14.7 K/uL (1.8-7.7); PLATELET COUNT (AUTO) 94 K/uL (150-450); RED CELL DISTRIBUTION WIDTH 14.9 % (11.5-14.5); WHITE BLOOD COUNT (AUTO) 16.2 K/uL (4.5-11.0)
[2024-06-27 07:04] LABS: POTASSIUM 2.5 mmol/L (3.5-5.1)
[2024-06-27] MEDS: POTASSIUM CHLORIDE 20 MEQ ER TABLET PO ONE (08:18)
[2024-06-27] MEDS: POTASSIUM CHL 10 MEQ/WATER 50 ML IV SCH ×2 (08:21→16:28)
[2024-06-27] MEDS: PIPERACILLIN SODIUM/TAZOBACTAM 2.25 GM in DEXTROSE 5%-WATER 50 ML IV SCH (10:21)
[2024-06-27 12:40] LABS: ABG BASE EXCESS -1.6 mmol/L (-2.0-3.0); ABG CARBOXYHEMOGLOBIN 0.4 % (0.5-1.5); ABG HCO3 23.7 mmol/L (21.0-28.0); ABG METHEMOGLOBIN 0.1 % (0.0-1.5); ABG OXYGEN CONTENT 15.9 mL/dL (15.0-23.0); ABG OXYGEN SATURATION 98.8 % (94.0-98.0); ABG OXYHEMOGLOBIN 98.3 % (94.0-98.0); ABG PCO2 31 mmHg (32.0-45.0); ABG PH 7.471 (7.350-7.450); ABG TOTAL HEMOGLOBIN 11.3 G/dL (12.0-16.0); PO2, ARTERIAL BG 135.2 mmHg (83.0-108.0); SOURCE, BLOOD GAS ARTERIAL; TEMPERATURE, FAHRENHEIT, BG 97.4 FAHREN (96.0-98.6)
[2024-06-27 12:41] LABS: CPAP, BG 0 cm H2O; O2 DEVICE,BLOOD GAS VENTILATOR (ROOM AIR); PRESSURE SUPPORT, BG 8 cm H2O; SITE, BLOOD GAS ARTERIAL LINE; SPONTANEOUS VT, BG 300 ml; VENT MODE, BG CPAP (ROOM AIR)
[2024-06-27] MEDS: INSULIN GLARGINE,HUM.REC.ANLOG 100 UNITS/ML SQ SCH (13:52)
[2024-06-27 15:49] LABS: CALCIUM, TOTAL 7.5 mg/dL (8.8-10.5); CREATININE 1.11 mg/dL (0.60-1.30)
[2024-06-27 15:53] LABS: POTASSIUM 2.7 mmol/L (3.5-5.1)
[2024-06-27 18:31] LABS: GLUCOMETER DEV NAME(LOC) ICUN.5; GLUCOSE,POINT OF CARE 199 MG/DL (70-110)
[2024-06-27] MEDS ORDERED: POTASSIUM CHL 10 MEQ/WATER 50 ML IV PRN ×3 (20:30)
[2024-06-27] MEDS ORDERED: POTASSIUM CHLORIDE 10% 40 MEQ/30 ML LIQUID UDCUP PO PRN (20:30)
[2024-06-27] MEDS: POTASSIUM CHL 10 MEQ/WATER 50 ML IV PRN (21:04)
[2024-06-28] VITALS: BP 146/55; PULSE 76; PULSE 78; RESP 18; TEMP 97.8; O2SAT 100
[2024-06-28 00:26] LABS: GLUCOMETER DEV NAME(LOC) ICU.S6; GLUCOSE,POINT OF CARE 173 MG/DL (70-110)
[2024-06-28 04:00] VITALS: BP 152/55; PULSE 69; RESP 17; TEMP 97.5; O2SAT 100
[2024-06-28 05:26] LABS: CALCIUM, TOTAL 7.4 mg/dL (8.8-10.5); POTASSIUM 4.2 mmol/L (3.5-5.1)
[2024-06-28 05:29] LABS: BASOPHILS % (AUTO) 0.1 % (0.0-2.0); EOSINOPHILS % (AUTO) 0.1 % (1.0-6.0); HEMATOCRIT 32.4 % (36-46); HEMOGLOBIN 10.9 g/dL (12.0-16.0); LYMPHOCYTES # (AUTO) 0.4 K/uL (1.0-4.8); LYMPHOCYTES % (AUTO) 3.4 % (22.0-44.0); MEAN CORPUSCULAR HEMOGLOBIN 33.4 pg (26.0-34.0); MEAN CORPUSCULAR HGB CONC 33.6 G/dL (31.0-37.0); MEAN CORPUSCULAR VOLUME 99 fL (80-100); MONOCYTES # (AUTO) 0.4 K/uL (0.1-1.0); MONOCYTES % (AUTO) 3.4 % (2.0-9.0); NEUTROPHILS # (AUTO) 11.4 K/uL (1.8-7.7); PLATELET COUNT (AUTO) 91 K/uL (150-450); RED BLOOD CELL COUNT(AUTO) 3.26 MIL/uL (4.00-5.20); WHITE BLOOD COUNT (AUTO) 12.3 K/uL (4.5-11.0)
[2024-06-28 06:30] LABS: GLUCOMETER DEV NAME(LOC) ICUN.5; GLUCOSE,POINT OF CARE 147 MG/DL (70-110)
[2024-06-28 08:00] VITALS: BP 158/56; PULSE 70; PULSE 72; RESP 17; TEMP 98.6; O2SAT 100
[2024-06-28] MEDS: HYDROCORTISONE SOD SUCC 100 MG/2 ML VIAL IVP SCH (09:00)
[2024-06-28] MEDS: AmLODIPine BESYLATE 5 MG TABLET PO SCH (11:43)
[2024-06-28 12:00] VITALS: BP 179/63; PULSE 85; RESP 22; TEMP 97.7; O2SAT 100
[2024-06-28] MEDS ORDERED: SODIUM CHLORIDE 0.9% 250 ML IV ONE (12:11)
[2024-06-28 13:05] LABS: GLUCOMETER DEV NAME(LOC) ICUN.5; GLUCOSE,POINT OF CARE 174 MG/DL (70-110)
[2024-06-28] MEDS: PIPERACILLIN/TAZO 3.375 GM/D5W 50 ML IV SCH (15:44)
[2024-06-28 16:00] VITALS: BP 164/54; PULSE 83; RESP 21; TEMP 99.2; O2SAT 100
[2024-06-28 18:11] LABS: GLUCOMETER DEV NAME(LOC) ICU.S6; GLUCOSE,POINT OF CARE 285 MG/DL (70-110)
[2024-06-28 20:00] VITALS: BP 158/53; PULSE 78; PULSE 86; RESP 18; TEMP 98.3; O2SAT 100
[2024-06-28 23:40] LABS: GLUCOMETER DEV NAME(LOC) ICU.S6; GLUCOSE,POINT OF CARE 252 MG/DL (70-110)
[2024-06-29] VITALS (10 sets, daily range): BP systolic 125–174; BP diastolic 42–74; PULSE 72–98; RESP 15–19; TEMP 97.1–98.5; O2SAT 97–100
[2024-06-29 05:41] LABS: BASOPHILS % (AUTO) 0.2 % (0.0-2.0); EOSINOPHILS % (AUTO) 0 % (1.0-6.0); HEMATOCRIT 32.2 % (36-46); HEMOGLOBIN 11.1 g/dL (12.0-16.0); LYMPHOCYTES # (AUTO) 0.4 K/uL (1.0-4.8); MEAN CORPUSCULAR HEMOGLOBIN 34.2 pg (26.0-34.0); MEAN CORPUSCULAR HGB CONC 34.4 G/dL (31.0-37.0); MEAN CORPUSCULAR VOLUME 100 fL (80-100); MONOCYTES # (AUTO) 0.4 K/uL (0.1-1.0); MONOCYTES % (AUTO) 4.5 % (2.0-9.0); NEUTROPHILS # (AUTO) 7.9 K/uL (1.8-7.7); PLATELET COUNT (AUTO) 96 K/uL (150-450); RED BLOOD CELL COUNT(AUTO) 3.23 MIL/uL (4.00-5.20); RED CELL DISTRIBUTION WIDTH 14.8 % (11.5-14.5); WHITE BLOOD COUNT (AUTO) 8.8 K/uL (4.5-11.0)
[2024-06-29 05:53] LABS: NEUTROPHILS % (AUTO) 90.3 % (40.0-70.0)
[2024-06-29 05:55] LABS: CALCIUM, TOTAL 7.7 mg/dL (8.8-10.5); CREATININE 0.98 mg/dL (0.60-1.30); POTASSIUM 3.3 mmol/L (3.5-5.1)
[2024-06-29 05:56] LABS: HEMOGLOBIN A1C 8.4 % (3.8-5.6)
[2024-06-29 06:25] LABS: GLUCOMETER DEV NAME(LOC) ICU.S6; GLUCOSE,POINT OF CARE 248 MG/DL (70-110)
[2024-06-29] MEDS: POTASSIUM CHLORIDE 10% 40 MEQ/30 ML LIQUID UDCUP PO PRN (08:12)
[2024-06-29] MEDS: LOSARTAN POTASSIUM 25 MG TABLET PO SCH (10:06)
[2024-06-29] MEDS: FUROSEMIDE 20 MG/2 ML VIAL IVP SCH (10:48)
[2024-06-29 11:51] LABS: GLUCOMETER DEV NAME(LOC) ICU.S6; GLUCOSE,POINT OF CARE 244 MG/DL (70-110)
[2024-06-29] MEDS: HydrALAZINE HCL 20 MG/ML VIAL IVP PRN (12:27)
[2024-06-29] MEDS ORDERED: SODIUM CHLORIDE 0.9% 500 ML IV ONE (16:09)
[2024-06-29 18:06] LABS: GLUCOMETER DEV NAME(LOC) 5N.1D; GLUCOSE,POINT OF CARE 257 MG/DL (70-110)
[2024-06-29] MEDS: AmLODIPine BESYLATE 5 MG TABLET PO SCH (21:09)
[2024-06-30] VITALS (11 sets, daily range): BP systolic 117–148; BP diastolic 55–64; PULSE 74–107; RESP 17–19; TEMP 97.6–98.2; O2SAT 95–98
[2024-06-30 01:16] LABS: GLUCOMETER DEV NAME(LOC) 5S.2D; GLUCOSE,POINT OF CARE 297 MG/DL (70-110)
[2024-06-30] MEDS: LEVOTHYROXINE SODIUM 50 MCG TABLET PO SCH (06:00)
[2024-06-30 06:21] LABS: GLUCOMETER DEV NAME(LOC) 5N.2C; GLUCOSE,POINT OF CARE 277 MG/DL (70-110)
[2024-06-30 11:36] LABS: GLUCOMETER DEV NAME(LOC) 5S.2D; GLUCOSE,POINT OF CARE 270 MG/DL (70-110)
[2024-06-30] MEDS: PIPERACILLIN SODIUM/TAZOBACTAM 2.25 GM in DEXTROSE 5%-WATER 50 ML IV SCH (15:22)
[2024-06-30 17:21] LABS: GLUCOMETER DEV NAME(LOC) 5N.2C; GLUCOSE,POINT OF CARE 345 MG/DL (70-110)
[2024-07-01] VITALS (8 sets, daily range): BP systolic 120–131; BP diastolic 53–70; PULSE 68–100; RESP 18; TEMP 98; O2SAT 94–97
[2024-07-01 00:20] LABS: GLUCOMETER DEV NAME(LOC) 5N.2C; GLUCOSE,POINT OF CARE 372 MG/DL (70-110)
[2024-07-01 06:43] LABS: BASOPHILS % (AUTO) 0.3 % (0.0-2.0); EOSINOPHILS % (AUTO) 0.4 % (1.0-6.0); HEMATOCRIT 31.3 % (36-46); HEMOGLOBIN 10.7 g/dL (12.0-16.0); LYMPHOCYTES # (AUTO) 0.8 K/uL (1.0-4.8); LYMPHOCYTES % (AUTO) 10.6 % (22.0-44.0); MEAN CORPUSCULAR HEMOGLOBIN 34.2 pg (26.0-34.0); MEAN CORPUSCULAR HGB CONC 34.3 G/dL (31.0-37.0); MEAN CORPUSCULAR VOLUME 100 fL (80-100); MONOCYTES # (AUTO) 0.5 K/uL (0.1-1.0); MONOCYTES % (AUTO) 6.8 % (2.0-9.0); NEUTROPHILS # (AUTO) 6.1 K/uL (1.8-7.7); NEUTROPHILS % (AUTO) 81.9 % (40.0-70.0); PLATELET COUNT (AUTO) 164 K/uL (150-450); RED BLOOD CELL COUNT(AUTO) 3.14 MIL/uL (4.00-5.20); RED CELL DISTRIBUTION WIDTH 14.5 % (11.5-14.5); WHITE BLOOD COUNT (AUTO) 7.4 K/uL (4.5-11.0)
[2024-07-01 07:05] LABS: CALCIUM, TOTAL 7.8 mg/dL (8.8-10.5); CREATININE 0.99 mg/dL (0.60-1.30); POTASSIUM 3.2 mmol/L (3.5-5.1)
[2024-07-01 07:51] LABS: GLUCOMETER DEV NAME(LOC) 5N.2C; GLUCOSE,POINT OF CARE 314 MG/DL (70-110)
[2024-07-01 11:51] LABS: GLUCOMETER DEV NAME(LOC) 5N.2C; GLUCOSE,POINT OF CARE 317 MG/DL (70-110)
[2024-07-01] MEDS ORDERED: AMLO-257 PO (11:53)
[2024-07-01] MEDS ORDERED: ASPI-1444 PO (11:53)
[2024-07-01] MEDS ORDERED: POLY17PO62 PO (11:53)
[2024-07-01] MEDS ORDERED: PRAV40TA4 PO (11:53)
[2024-07-01] MEDS ORDERED: LOSA-417 PO (11:53)
[2024-07-01] MEDS ORDERED: ALBU18HF12 IH (11:53)
[2024-07-01] MEDS ORDERED: AMOX-457 PO (11:54)
[2024-07-01] MEDS ORDERED: PRED-549 PO (11:58)
[2024-07-01] MEDS: SitaGLIPtin PHOSPHATE 100 MG TABLET PO SCH (12:44)
[2024-07-01 17:26] LABS: GLUCOMETER DEV NAME(LOC) 5N.2C; GLUCOSE,POINT OF CARE 341 MG/DL (70-110)
== END 2024-07-01 19:35 | disposition home health service (06) | DRG 870 ==
LOC: EMS 18:55 → EDH 20:37 → ICU 06-21 05:15 → 5S 06-29 15:00
PROVIDERS: ADMIT Internal Medicine; ATTEND Internal Medicine
PROC: 0BH18EZ Insertion of Endotracheal Airway into Trachea, Via Natural or Artificial Opening Endoscopic (ICD-10-PCS; 2024-06-20)
PROC: 5A1955Z Respiratory Ventilation, Greater than 96 Consecutive Hours (ICD-10-PCS; 2024-06-20)
PROC: 05HY33Z Insertion of Infusion Device into Upper Vein, Percutaneous Approach (ICD-10-PCS; 2024-06-20)
PROC: B543ZZA Ultrasonography of Right Jugular Veins, Guidance (ICD-10-PCS; 2024-06-20)
PROC: 03HY32Z Insertion of Monitoring Device into Upper Artery, Percutaneous Approach (ICD-10-PCS; principal; 2024-06-21)
PROC: 0W993ZZ Drainage of Right Pleural Cavity, Percutaneous Approach (ICD-10-PCS; 2024-06-24)
PROC: 0W9B3ZZ Drainage of Left Pleural Cavity, Percutaneous Approach (ICD-10-PCS; 2024-06-25)
DX: A41.9 Sepsis, unspecified organism (principal); E11.10 Type 2 diabetes mellitus with ketoacidosis without coma; R65.21 Severe sepsis with septic shock; N17.0 Acute kidney failure with tubular necrosis; G92.8 Other toxic encephalopathy; J18.9 Pneumonia, unspecified organism; J96.01 Acute respiratory failure with hypoxia; J90 Pleural effusion, not elsewhere classified; R18.8 Other ascites; Z20.822 Contact with and (suspected) exposure to COVID-19; I27.20 Pulmonary hypertension, unspecified; E11.22 Type 2 diabetes mellitus with diabetic chronic kidney disease; E78.00 Pure hypercholesterolemia, unspecified; E11.65 Type 2 diabetes mellitus with hyperglycemia; E03.9 Hypothyroidism, unspecified; E87.5 Hyperkalemia; I12.9 Hypertensive chronic kidney disease with stage 1 through stage 4 chronic kidney disease, or unspecified chronic kidney disease; I07.1 Rheumatic tricuspid insufficiency; N18.9 Chronic kidney disease, unspecified; D64.9 Anemia, unspecified; E87.6 Hypokalemia; K59.00 Constipation, unspecified; Z79.82 Long term (current) use of aspirin; Z79.899 Other long term (current) drug therapy
CPT/HCPCS: 0241U; 32555; 36600; 70450; 71045; 71250; 72192; 74150; 76705; 76770; 76942; 78226; 80048; 80076; 81001; 81005; 82009; 82040; 82271; 82465; 82570; 82805; 82945; 82962; 83036; 83605; 83615; 83735; 83880; 83986; 84100; 84132; 84145; 84157; 84300; 84443; 84484; 84540; 85025; 85610; 87015; 87040; 87070; 87075; 87081; 87101; 87205; 87206; 88108; 88305; 89051; 92526; 92610; 93005; 93306; 94002; 94003; 97110; 97112; 97163; 97167; 97530; 97535; 99291; A9537; G0238; J0360; J0461; J0696; J1265; J1644; J1720; J1815; J1940; J2405; J2470; J2543; J2704; J3010; J3480; J3490; J7040; J7050; J7060; 36415-L1; 36415-TC

== ENCOUNTER 2024-07-22 15:21 | Inpatient (IN) | payer OTHER ==
[~2024-07-22] VITALS: Ht 154.9 cm; Wt 52.3 kg
[~2024-07-22 15:21] MED LIST changes: -ACET-3385 PO; +ALBU18HF12 IH; +AMLO-257 PO; +AMOX-457 PO; -ATROPINE SULFATE 0.1 MG/ML 10 ML SYRINGE IVP ONE; -BISA10SU11 PR; -CYCL-448 PO; +DAPA10TA7 PO; -DOPamine HCL/D5W 400 MG/250 ML IV BAG IV ONE; +DULA0.75 SQ; -EMPA25TA3 PO; +FINE10TA PO; -GABA-529 PO; +INSU3INS3 SQ; -LIDO700A15 TP; +LOSA-417 PO; -METO-408 PO; +POLY17PO62 PO; +PRAV40TA4 PO; -PRAV80TA21 PO; +PRED-549 PO; -RANO500T27 PO; -SODI650T PO; -SODIUM BICARBONATE [ADULT] 8.4% 50 MEQ/50 ML SYRINGE IVP ONE; -VALS40TA11 PO
[2024-07-22 15:45] LABS: BASOPHILS % (AUTO) 0.4 % (0.0-2.0); EOSINOPHILS % (AUTO) 2.3 % (1.0-6.0); HEMOGLOBIN 10.1 g/dL (12.0-16.0); LYMPHOCYTES # (AUTO) 1.5 K/uL (1.0-4.8); LYMPHOCYTES % (AUTO) 24.1 % (22.0-44.0); MEAN CORPUSCULAR HEMOGLOBIN 33.4 pg (26.0-34.0); MEAN CORPUSCULAR HGB CONC 32.7 G/dL (31.0-37.0); MEAN CORPUSCULAR VOLUME 102 fL (80-100); MONOCYTES # (AUTO) 0.4 K/uL (0.1-1.0); MONOCYTES % (AUTO) 6.6 % (2.0-9.0); NEUTROPHILS # (AUTO) 4.2 K/uL (1.8-7.7); NEUTROPHILS % (AUTO) 66.6 % (40.0-70.0); PLATELET COUNT (AUTO) 248 K/uL (150-450); RED BLOOD CELL COUNT(AUTO) 3.03 MIL/uL (4.00-5.20); RED CELL DISTRIBUTION WIDTH 16.6 % (11.5-14.5); WHITE BLOOD COUNT (AUTO) 6.3 K/uL (4.5-11.0)
[2024-07-22 16:07] LABS: ALANINE AMINOTRANSFERASE 49 U/L (12-78); ALBUMIN 2.9 g/dL (3.4-5.0); ALKALINE PHOSPHATASE 139 U/L (46-116); ANION GAP 11 mmol/L (8-16); ASPARTATE AMINOTRANSFERASE 35 U/L (15-37); BILIRUBIN,TOTAL 0.9 mg/dL (0.1-1.0); CALCIUM, TOTAL 8.6 mg/dL (8.8-10.5); CARBON DIOXIDE 22 mmol/L (22-29); CHLORIDE 88 mmol/L (98-107); CREATINE KINASE, TOTAL ONLY 37 U/L (26-192); CREATININE 2.42 mg/dL (0.60-1.30); GLOMERULAR FILTR. RATE CALC 19 mL/min (>60); GLUCOSE,RANDOM 365 mg/dL (70-110); PHOSPHORUS 6.2 mg/dL (2.5-4.9); TROPONIN I-HIGH SENSITIVITY 11 ng/L (<51); UREA NITROGEN, BLOOD 42 mg/dL (7-18)
[2024-07-22 16:10] LABS: POTASSIUM 6.2 mmol/L (3.5-5.1); SODIUM SERUM 121 mmol/L (136-145)
[2024-07-22] MEDS ORDERED: RANO500T27 PO (16:13)
[2024-07-22 16:14] LABS: B-TYPE NATRIURETIC PEPTIDE 1240 pg/mL (0-100)
[2024-07-22] MEDS ORDERED: ATROPINE SULFATE 0.4 MG/ML VIAL IVP ONE ×2 (16:15→19:30)
[2024-07-22 16:21] LABS: INFLUENZA TYPE A NEGATIVE FOR TYPE A (NEGATIVE); INFLUENZA TYPE B NEGATIVE FOR TYPE B (NEGATIVE)
[2024-07-22] MEDS: ATROPINE SULFATE 0.1 MG/ML 10 ML SYRINGE IVP ONE ×2 (16:21→19:34)
[2024-07-22] MEDS: SODIUM ZIRCONIUM CYCLOSILICATE 10 GM POWDER PACKET PO ONE (16:22)
[2024-07-22] MEDS ORDERED: 0.9% SODIUM CHLORIDE 5 ML NEB SOLUTION NEB ONE ×2 (16:23→19:55)
[2024-07-22 16:27] VITALS: PULSE 32; RESP 20; O2SAT 99
[2024-07-22] MEDS: ALBUTEROL SULFATE 2.5 MG/0.5 ML 5 ML NEB SOLUTION NEB ONE (16:27)
[2024-07-22] MEDS: INSULIN REGULAR, HUMAN 100 UNITS/ML IVP ONE ×2 (16:28→19:58)
[2024-07-22] MEDS: CALCIUM GLUCONATE 1,000 MG in DEXTROSE 5%-WATER 50 ML IV ONE (16:31)
[2024-07-22] MEDS: SODIUM CHLORIDE 0.9% 1,000 ML IV ONE (16:36)
[2024-07-22] MEDS ORDERED: DEXTROSE 50%-WATER 25 GM/50 ML SYRINGE IVP PRN (16:45)
[2024-07-22] MEDS ORDERED: ONDANSETRON HCL 4 MG/2 ML VIAL IVP PRN (16:45)
[2024-07-22] MEDS ORDERED: ACETAMINOPHEN 325 MG TABLET PO PRN (16:45)
[2024-07-22 16:50] VITALS: PULSE 45; RESP 20; O2SAT 100
[2024-07-22 19:11] LABS: CALCIUM, TOTAL 8.5 mg/dL (8.8-10.5); CREATININE 2.3 mg/dL (0.60-1.30); MAGNESIUM 2.4 mg/dL (1.80-2.40); PHOSPHORUS 6.3 mg/dL (2.5-4.9)
[2024-07-22 19:12] LABS: POTASSIUM 6.3 mmol/L (3.5-5.1)
[2024-07-22] MEDS ORDERED: CALCIUM GLUCONATE 0.465 MEQ/ML 10 ML VIAL ONE (19:29)
[2024-07-22] MEDS: CALCIUM GLUCONATE 100 MG/ML 10 ML IVP ONE (19:34)
[2024-07-22] MEDS ORDERED: DOPamine 400MG/D5W[STANDARD] 250 ML IV ONE (19:37)
[2024-07-22] MEDS ORDERED: NOREPINEPHRINE 8 MG/0.9 % NACL 250 ML IV PRN (19:45)
[2024-07-22] MEDS ORDERED: 0.9% SODIUM CHLORIDE 15 ML NEB SOLUTION NEB ONE (19:51)
[2024-07-22] MEDS: DOPamine 400MG/D5W[STANDARD] 250 ML IV PRN (19:53)
[2024-07-22 19:55] VITALS: PULSE 41; RESP 20; O2SAT 98
[2024-07-22 19:56] LABS: GLUCOMETER DEV NAME(LOC) ER.7; GLUCOSE,POINT OF CARE 265 MG/DL (70-110)
[2024-07-22] MEDS: ALBUTEROL SULFATE 2.5 MG/0.5 ML NEB SOLUTION NEB ONE (19:56)
[2024-07-22] MEDS: DEXTROSE 50%-WATER 25 GM/50 ML SYRINGE IVP ONE (19:58)
[2024-07-22] MEDS: SODIUM CHLORIDE 0.9% 1,000 ML IV SCH (20:01)
[2024-07-22 20:10] VITALS: PULSE 47; RESP 24; O2SAT 96
[2024-07-22] MEDS: NOREPINEPHRINE 8 MG/0.9 % NACL 250 ML IV PRN (20:20)
[2024-07-22] MEDS: DOCUSATE SODIUM 100 MG CAPSULE PO SCH (20:34)
[2024-07-22 20:45] LABS: APPEARANCE,URINE HAZY (CLEAR); BILIRUBIN,URINE NEGATIVE (NEGATIVE); COLOR,URINE DARK YELLOW (YELLOW); GLUCOSE, URINE (UA) NEGATIVE (NEGATIVE); KETONES,URINE NEGATIVE (NEGATIVE); LEUKOCYTE ESTERASE ,URINE NEGATIVE (NEGATIVE); NITRATE,URINE NEGATIVE (NEGATIVE); OCCULT BLOOD,URINE NEGATIVE (NEGATIVE); PROTEIN,URINE 30-70 mg/dL (NEGATIVE); SPECIFIC GRAVITIY, URINE 1.018 (1.003-1.030); UROBILINOGEN,URINE <=1.0 mg/dL (<=1.0)
[2024-07-22 22:15] VITALS: BP 133/46; PULSE 41; PULSE 47; RESP 21; TEMP 91.6; O2SAT 98
[2024-07-22] MEDS: CHLORHEXIDINE GLUCONATE 2% TOWELETTE [2'S/6'S] TP SCH (22:15)
[2024-07-22 22:25] LABS: CALCIUM, TOTAL 8.9 mg/dL (8.8-10.5); CREATININE 2.48 mg/dL (0.60-1.30); MAGNESIUM 2.3 mg/dL (1.80-2.40); POTASSIUM 5.8 mmol/L (3.5-5.1)
[2024-07-22] MEDS: ETHYL ALCOHOL 62% ANTISEPTIC NASAL SANITIZER 0.6 ML AMPUL NASAL SCH (23:42)
[2024-07-22] MEDS: INSULIN LISPRO 100 UNITS/ML SQ PRN (23:56)
[2024-07-23] VITALS (16 sets, daily range): BP systolic 111–173; BP diastolic 52–65; PULSE 47–67; RESP 16–27; TEMP 91.8–97.3; O2SAT 92–100
[2024-07-23] MEDS: SODIUM ZIRCONIUM CYCLOSILICATE 10 GM POWDER PACKET PO ONE (00:29)
[2024-07-23] MEDS: HYDROCORTISONE SOD SUCC 100 MG/2 ML VIAL IVP ONE (00:29)
[2024-07-23] MEDS: HEPARIN SODIUM,PORCINE 5,000 UNITS/ML VIAL SQ SCH (00:30)
[2024-07-23] MEDS: HEPARIN SODIUM,PORCINE 1,000 UNITS/ML VIAL IVCATH ONE (01:04)
[2024-07-23] MEDS: HEPARIN SODIUM,PORCINE 1,000 UNITS/ML VIAL IVCATH PRN (01:05)
[2024-07-23 01:22] LABS: ACETAMINOPHEN < 2 mcg/mL (10-30); HEMOGLOBIN A1C 8.4 % (3.8-5.6)
[2024-07-23 01:24] LABS: ALCOHOL, BLOOD (SERUM) < 3 mg/dL (0-10)
[2024-07-23 01:29] LABS: LACTIC ACID 4.4 mmol/L (0.4-2.0)
[2024-07-23 01:30] LABS: ACETONE,BLOOD NEGATIVE (NEGATIVE); SALICYLATE 0.8 mg/dL (2.8-20.0)
[2024-07-23] MEDS: SODIUM CHLORIDE 0.9% 1,000 ML IV SCH (03:00)
[2024-07-23] MEDS: HYDROCORTISONE SOD SUCC 100 MG/2 ML VIAL IVP SCH (06:08)
[2024-07-23 06:28] LABS: BASOPHILS % (AUTO) 0.4 % (0.0-2.0); EOSINOPHILS % (AUTO) 0.7 % (1.0-6.0); HEMATOCRIT 30.1 % (36-46); LYMPHOCYTES # (AUTO) 0.9 K/uL (1.0-4.8); LYMPHOCYTES % (AUTO) 7.5 % (22.0-44.0); MEAN CORPUSCULAR HEMOGLOBIN 33.8 pg (26.0-34.0); MEAN CORPUSCULAR HGB CONC 33.3 G/dL (31.0-37.0); MEAN CORPUSCULAR VOLUME 102 fL (80-100); MONOCYTES # (AUTO) 1.2 K/uL (0.1-1.0); MONOCYTES % (AUTO) 10.5 % (2.0-9.0); NEUTROPHILS # (AUTO) 9.6 K/uL (1.8-7.7); NEUTROPHILS % (AUTO) 80.9 % (40.0-70.0); PLATELET COUNT (AUTO) 246 K/uL (150-450); RED BLOOD CELL COUNT(AUTO) 2.96 MIL/uL (4.00-5.20); RED CELL DISTRIBUTION WIDTH 16.2 % (11.5-14.5); WHITE BLOOD COUNT (AUTO) 11.8 K/uL (4.5-11.0)
[2024-07-23 06:50] LABS: GLUCOMETER DEV NAME(LOC) ICU.S6; GLUCOSE,POINT OF CARE 259 MG/DL (70-110)
[2024-07-23 08:01] LABS: GLUCOMETER DEV NAME(LOC) ICUN.5; GLUCOSE,POINT OF CARE 264 MG/DL (70-110)
[2024-07-23] MEDS: FAMOTIDINE 20 MG TABLET PO SCH (08:19)
[2024-07-23 08:35] LABS: ANION GAP 10 mmol/L (8-16); CALCIUM, TOTAL 8.5 mg/dL (8.8-10.5); CARBON DIOXIDE 21 mmol/L (22-29); CHLORIDE 91 mmol/L (98-107); CREATININE 2.45 mg/dL (0.60-1.30); GLOMERULAR FILTR. RATE CALC 19 mL/min (>60); GLUCOSE,RANDOM 248 mg/dL (70-110); POTASSIUM 5.9 mmol/L (3.5-5.1); THYROID STIMULATING HORMONE 2.79 uIU/mL (0.36-3.74); TROPONIN I-HIGH SENSITIVITY 19 ng/L (<51); UREA NITROGEN, BLOOD 44 mg/dL (7-18)
[2024-07-23 08:39] LABS: SODIUM SERUM 122 mmol/L (136-145)
[2024-07-23] MEDS: NOREPINEPHRINE 8 MG/0.9 % NACL 250 ML IV PRN (08:56)
[2024-07-23] MEDS: DOPamine 400MG/D5W[STANDARD] 250 ML IV PRN (08:57)
[2024-07-23] MEDS ORDERED: BUDESONIDE 0.25 MG/2 ML NEB SOLUTION NEB SCH (10:00)
[2024-07-23] MEDS ORDERED: SODIUM CHLORIDE 0.9% 250 ML IV ONE (10:04)
[2024-07-23] MEDS: CefTRIAXone 1 GM/DEXTROSE 50 ML IV SCH (10:05)
[2024-07-23] MEDS: AZITHROMYCIN 500 MG/NS 250 ML IV SCH (12:21)
[2024-07-23 12:46] LABS: GLUCOMETER DEV NAME(LOC) ICU.S6; GLUCOSE,POINT OF CARE 204 MG/DL (70-110)
[2024-07-23] MEDS: BUDESONIDE 0.5 MG/2 ML NEB SOLUTION NEB SCH (13:54)
[2024-07-23] MEDS: PHENYLEPHRINE 200 MG/D5%-WATER 250 ML IV PRN (14:28)
[2024-07-23 14:41] LABS: ABG BASE EXCESS -17.1 mmol/L (-2.0-3.0); ABG CARBOXYHEMOGLOBIN 0.2 % (0.5-1.5); ABG HCO3 11.6 mmol/L (21.0-28.0); ABG OXYGEN CONTENT 14.6 mL/dL (15.0-23.0); ABG OXYGEN SATURATION 97.4 % (94.0-98.0); ABG OXYHEMOGLOBIN 97.2 % (94.0-98.0); ABG PCO2 57 mmHg (32.0-45.0); ABG TOTAL HEMOGLOBIN 10.5 G/dL (12.0-16.0); PO2, ARTERIAL BG 127.8 mmHg (83.0-108.0); SOURCE, BLOOD GAS ARTERIAL
[2024-07-23 14:42] LABS: ALLEN TEST, BLOOD GAS Positive; INSPIRATORY TIME, BG 0.9 SEC; O2 DEVICE,BLOOD GAS BIPAP (ROOM AIR); PRESSURE SUPPORT, BG 6 cm H2O; SITE, BLOOD GAS LFT RADIAL; SPONTANEOUS VT, BG 457 ml
[2024-07-23] MEDS ORDERED: ETOMIDATE 2 MG/ML 10 ML VIAL ONE (15:03)
[2024-07-23] MEDS: SODIUM BICARBONATE [ADULT] 8.4% 50 MEQ/50 ML SYRINGE IVP ONE (15:12)
[2024-07-23] MEDS: ETOMIDATE 2 MG/ML 10 ML VIAL IVP ONE (15:13)
[2024-07-23] MEDS: ROCURONIUM BROMIDE 10 MG/ML 5 ML VIAL IVP ONE (15:15)
[2024-07-23] MEDS: PROPOFOL 1000 MG/ISO-OSM 100 ML IV PRN (16:23)
[2024-07-23 16:42] LABS: ABG BASE EXCESS -9.9 mmol/L (-2.0-3.0); ABG HCO3 17.6 mmol/L (21.0-28.0); ABG METHEMOGLOBIN 0.1 % (0.0-1.5); ABG OXYGEN CONTENT 16.4 mL/dL (15.0-23.0); ABG OXYGEN SATURATION 99.9 % (94.0-98.0); ABG OXYHEMOGLOBIN 99.8 % (94.0-98.0); ABG PCO2 24 mmHg (32.0-45.0); ABG PH 7.412 (7.350-7.450); ABG TOTAL HEMOGLOBIN 10.8 G/dL (12.0-16.0); PO2, ARTERIAL BG 445.1 mmHg (83.0-108.0); SOURCE, BLOOD GAS ARTERIAL; TEMPERATURE, FAHRENHEIT, BG 93.7 FAHREN (96.0-98.6)
[2024-07-23 16:43] LABS: ALLEN TEST, BLOOD GAS Positive; O2 DEVICE,BLOOD GAS VENTILATOR (ROOM AIR); PEEP,BG 5 cm H2O; SITE, BLOOD GAS LFT RADIAL; SPONTANEOUS VT, BG 365 ml; VT, ABG 350 ml
[2024-07-23 18:53] LABS: CALCIUM, TOTAL 8.2 mg/dL (8.8-10.5); CREATININE 2.24 mg/dL (0.60-1.30); MAGNESIUM 2.1 mg/dL (1.80-2.40); PHOSPHORUS 5.5 mg/dL (2.5-4.9); POTASSIUM 5.1 mmol/L (3.5-5.1)
[2024-07-23 21:30] LABS: GLUCOMETER DEV NAME(LOC) ICUN.5; GLUCOSE,POINT OF CARE 274 MG/DL (70-110)
[2024-07-23] MEDS: FentaNYL CIT 1000MCG/0.9% NACL 100 ML IV PRN (22:39)
[2024-07-24] VITALS (17 sets, daily range): BP systolic 115–160; BP diastolic 57–105; PULSE 60–93; RESP 20–25; TEMP 97.7–99.8; O2SAT 99–100
[2024-07-24 05:56] LABS: BASOPHILS % (AUTO) 0.3 % (0.0-2.0); EOSINOPHILS % (AUTO) 0.1 % (1.0-6.0); HEMATOCRIT 27.9 % (36-46); HEMOGLOBIN 9.6 g/dL (12.0-16.0); LYMPHOCYTES # (AUTO) 0.8 K/uL (1.0-4.8); LYMPHOCYTES % (AUTO) 10.4 % (22.0-44.0); MEAN CORPUSCULAR HEMOGLOBIN 34.4 pg (26.0-34.0); MEAN CORPUSCULAR HGB CONC 34.5 G/dL (31.0-37.0); MEAN CORPUSCULAR VOLUME 100 fL (80-100); MONOCYTES # (AUTO) 0.5 K/uL (0.1-1.0); NEUTROPHILS # (AUTO) 6.2 K/uL (1.8-7.7); NEUTROPHILS % (AUTO) 82.2 % (40.0-70.0); PLATELET COUNT (AUTO) 235 K/uL (150-450); RED BLOOD CELL COUNT(AUTO) 2.79 MIL/uL (4.00-5.20); RED CELL DISTRIBUTION WIDTH 15.7 % (11.5-14.5); WHITE BLOOD COUNT (AUTO) 7.5 K/uL (4.5-11.0)
[2024-07-24 06:02] LABS: CALCIUM, TOTAL 8.2 mg/dL (8.8-10.5); CREATININE 2.06 mg/dL (0.60-1.30); POTASSIUM 4.6 mmol/L (3.5-5.1)
[2024-07-24 06:26] LABS: GLUCOMETER DEV NAME(LOC) ICUN.5; GLUCOSE,POINT OF CARE 245 MG/DL (70-110)
[2024-07-24 09:07] LABS: POTASSIUM,URINE RANDOM 15 mmol/L (12-75); SODIUM,URINE RANDOM 7 mmol/l (20-110)
[2024-07-24 11:20] LABS: GLUCOMETER DEV NAME(LOC) ICU.S6; GLUCOSE,POINT OF CARE 159 MG/DL (70-110)
[2024-07-24 11:25] LABS: GLUCOMETER DEV NAME(LOC) ICU.S6; GLUCOSE,POINT OF CARE 160 MG/DL (70-110)
[2024-07-24] MEDS ORDERED: LEVOTHYROXINE SODIUM 50 MCG TABLET NG SCH (16:45)
[2024-07-24] MEDS: LEVOTHYROXINE SODIUM 75 MCG TABLET NG SCH (17:38)
[2024-07-24 18:15] LABS: GLUCOMETER DEV NAME(LOC) ICUN.5; GLUCOSE,POINT OF CARE 96 MG/DL (70-110)
[2024-07-24] MEDS ORDERED: COSYNTROPIN 0.25 MG VIAL IVP ONE (20:00)
[2024-07-25] VITALS (13 sets, daily range): BP systolic 114–134; BP diastolic 60–70; PULSE 83–99; RESP 12–22; TEMP 97.3–98.7; O2SAT 98–100
[2024-07-25 03:46] LABS: GLUCOMETER DEV NAME(LOC) ICU.S6; GLUCOSE,POINT OF CARE 104 MG/DL (70-110)
[2024-07-25] MEDS: COSYNTROPIN 0.25 MG VIAL IVP ONE (04:38)
[2024-07-25 06:36] LABS: CALCIUM, TOTAL 8.2 mg/dL (8.8-10.5); CREATININE 1.34 mg/dL (0.60-1.30); POTASSIUM 3.3 mmol/L (3.5-5.1)
[2024-07-25 06:39] LABS: BASOPHILS % (AUTO) 0.1 % (0.0-2.0); EOSINOPHILS % (AUTO) 0 % (1.0-6.0); HEMATOCRIT 27.2 % (36-46); HEMOGLOBIN 9.3 g/dL (12.0-16.0); LYMPHOCYTES # (AUTO) 0.7 K/uL (1.0-4.8); LYMPHOCYTES % (AUTO) 9.9 % (22.0-44.0); MEAN CORPUSCULAR HEMOGLOBIN 34.6 pg (26.0-34.0); MEAN CORPUSCULAR HGB CONC 34.4 G/dL (31.0-37.0); MEAN CORPUSCULAR VOLUME 101 fL (80-100); MONOCYTES # (AUTO) 0.3 K/uL (0.1-1.0); MONOCYTES % (AUTO) 4.5 % (2.0-9.0); NEUTROPHILS # (AUTO) 5.7 K/uL (1.8-7.7); PLATELET COUNT (AUTO) 254 K/uL (150-450); RED CELL DISTRIBUTION WIDTH 16.1 % (11.5-14.5); WHITE BLOOD COUNT (AUTO) 6.7 K/uL (4.5-11.0)
[2024-07-25 07:19] LABS: NEUTROPHILS % (AUTO) 85.5 % (40.0-70.0)
[2024-07-25 07:20] LABS: RBC MORPHOLOGY COMMENT ABNORMAL RBC MORPH
[2024-07-25 11:21] LABS: GLUCOMETER DEV NAME(LOC) ICU.S6; GLUCOSE,POINT OF CARE 144 MG/DL (70-110)
[2024-07-25 12:00] LABS: GLUCOMETER DEV NAME(LOC) ICUN.5; GLUCOSE,POINT OF CARE 131 MG/DL (70-110)
[2024-07-25] MEDS: POTASSIUM CHL 10 MEQ/WATER 50 ML IV SCH (12:02)
[2024-07-25] MEDS: SODIUM CHLORIDE 0.9% 1,000 ML IV SCH (12:42)
[2024-07-25 14:31] LABS: ABG A-A DIFF O2 74.9 mmHg (10-20.0); ABG BASE EXCESS -4.4 mmol/L (-2.0-3.0); ABG CARBOXYHEMOGLOBIN 0.3 % (0.5-1.5); ABG HCO3 21.3 mmol/L (21.0-28.0); ABG METHEMOGLOBIN 0.3 % (0.0-1.5); ABG OXYGEN CONTENT 13.9 mL/dL (15.0-23.0); ABG OXYGEN SATURATION 97.2 % (94.0-98.0); ABG OXYHEMOGLOBIN 96.6 % (94.0-98.0); ABG PCO2 34 mmHg (32.0-45.0); ABG PH 7.393 (7.350-7.450); ABG TOTAL HEMOGLOBIN 10.1 G/dL (12.0-16.0); ALLEN TEST, BLOOD GAS Positive; O2 DEVICE,BLOOD GAS VENTILATOR (ROOM AIR); PO2, ARTERIAL BG 98.6 mmHg (83.0-108.0); SITE, BLOOD GAS RT RADIAL; SOURCE, BLOOD GAS ARTERIAL; TEMPERATURE, FAHRENHEIT, BG 98.6 FAHREN (96.0-98.6)
[2024-07-25 14:32] LABS: PEEP,BG 5 cm H2O; PRESSURE SUPPORT, BG 5 cm H2O; SPONTANEOUS VT, BG 486 ml; VENT MODE, BG CPAP (ROOM AIR)
[2024-07-25 19:56] LABS: GLUCOMETER DEV NAME(LOC) ICUN.5; GLUCOSE,POINT OF CARE 133 MG/DL (70-110)
[2024-07-26] VITALS (11 sets, daily range): BP systolic 130–151; BP diastolic 66–87; PULSE 79–101; RESP 12–20; TEMP 97.1–99.3; O2SAT 95–100
[2024-07-26 00:31] LABS: GLUCOMETER DEV NAME(LOC) ICUN.5; GLUCOSE,POINT OF CARE 124 MG/DL (70-110)
[2024-07-26 06:21] LABS: GLUCOMETER DEV NAME(LOC) ICUN.5; GLUCOSE,POINT OF CARE 137 MG/DL (70-110)
[2024-07-26 06:23] LABS: BASOPHILS % (AUTO) 0.1 % (0.0-2.0); EOSINOPHILS % (AUTO) 0.1 % (1.0-6.0); HEMATOCRIT 29.1 % (36-46); HEMOGLOBIN 9.8 g/dL (12.0-16.0); LYMPHOCYTES # (AUTO) 0.8 K/uL (1.0-4.8); LYMPHOCYTES % (AUTO) 12.1 % (22.0-44.0); MEAN CORPUSCULAR HEMOGLOBIN 34.2 pg (26.0-34.0); MEAN CORPUSCULAR HGB CONC 33.9 G/dL (31.0-37.0); MEAN CORPUSCULAR VOLUME 101 fL (80-100); MONOCYTES # (AUTO) 0.3 K/uL (0.1-1.0); MONOCYTES % (AUTO) 5.4 % (2.0-9.0); NEUTROPHILS # (AUTO) 5.2 K/uL (1.8-7.7); NEUTROPHILS % (AUTO) 82.3 % (40.0-70.0); PLATELET COUNT (AUTO) 262 K/uL (150-450); RED BLOOD CELL COUNT(AUTO) 2.88 MIL/uL (4.00-5.20); RED CELL DISTRIBUTION WIDTH 15.9 % (11.5-14.5); WHITE BLOOD COUNT (AUTO) 6.3 K/uL (4.5-11.0)
[2024-07-26 06:30] LABS: CREATININE 0.93 mg/dL (0.60-1.30); POTASSIUM 3.1 mmol/L (3.5-5.1)
[2024-07-26] MEDS ORDERED: SODIUM CHLORIDE 0.9% 250 ML IV ONE (08:47)
[2024-07-26] MEDS: POTASSIUM CHL 10 MEQ/WATER 50 ML IV SCH (08:49)
[2024-07-26] MEDS: POTASSIUM CHL 10 MEQ/WATER 50 ML IV PRN (13:56)
[2024-07-26] MEDS: AmLODIPine BESYLATE 5 MG TABLET PO SCH (15:21)
[2024-07-26 19:55] LABS: GLUCOMETER DEV NAME(LOC) ICUN.5; GLUCOSE,POINT OF CARE 264 MG/DL (70-110)
[2024-07-26 19:55] LABS: GLUCOMETER DEV NAME(LOC) ICU.S6; GLUCOSE,POINT OF CARE 283 MG/DL (70-110)
[2024-07-27] VITALS (13 sets, daily range): BP systolic 132–164; BP diastolic 65–87; PULSE 90–112; RESP 14–18; TEMP 98–98.7; O2SAT 93–100
[2024-07-27 03:36] LABS: GLUCOMETER DEV NAME(LOC) ICUN.5; GLUCOSE,POINT OF CARE 273 MG/DL (70-110)
[2024-07-27 05:38] LABS: BASOPHILS % (AUTO) 0.4 % (0.0-2.0); EOSINOPHILS % (AUTO) 0.3 % (1.0-6.0); HEMATOCRIT 30.6 % (36-46); HEMOGLOBIN 10.2 g/dL (12.0-16.0); LYMPHOCYTES # (AUTO) 0.6 K/uL (1.0-4.8); LYMPHOCYTES % (AUTO) 10.2 % (22.0-44.0); MEAN CORPUSCULAR HEMOGLOBIN 33.7 pg (26.0-34.0); MEAN CORPUSCULAR HGB CONC 33.4 G/dL (31.0-37.0); MEAN CORPUSCULAR VOLUME 101 fL (80-100); MONOCYTES # (AUTO) 0.5 K/uL (0.1-1.0); MONOCYTES % (AUTO) 7.7 % (2.0-9.0); NEUTROPHILS # (AUTO) 4.9 K/uL (1.8-7.7); NEUTROPHILS % (AUTO) 81.4 % (40.0-70.0); PLATELET COUNT (AUTO) 270 K/uL (150-450); RED BLOOD CELL COUNT(AUTO) 3.03 MIL/uL (4.00-5.20); RED CELL DISTRIBUTION WIDTH 16.1 % (11.5-14.5)
[2024-07-27 05:49] LABS: CALCIUM, TOTAL 7.8 mg/dL (8.8-10.5); CREATININE 0.98 mg/dL (0.60-1.30); MAGNESIUM 1.8 mg/dL (1.80-2.40); PHOSPHORUS 1.5 mg/dL (2.5-4.9); POTASSIUM 3.2 mmol/L (3.5-5.1)
[2024-07-27 08:56] LABS: GLUCOMETER DEV NAME(LOC) ICU.S6; GLUCOSE,POINT OF CARE 234 MG/DL (70-110)
[2024-07-27] MEDS ORDERED: HydrALAZINE HCL 20 MG/ML VIAL IVP PRN (09:30)
[2024-07-27 12:07] LABS: CORTISOL Baseline 40.8 ug/dL (6.2-19.4)
[2024-07-27] MEDS: SODIUM,POTASSIUM PHOSPHATES POWDER PACKET PO SCH (13:16)
[2024-07-27 21:46] LABS: GLUCOMETER DEV NAME(LOC) 5N.1D; GLUCOSE,POINT OF CARE 267 MG/DL (70-110)
[2024-07-27 21:46] LABS: GLUCOMETER DEV NAME(LOC) 5N.1D; GLUCOSE,POINT OF CARE 303 MG/DL (70-110)
[2024-07-27 21:46] LABS: GLUCOMETER DEV NAME(LOC) 5N.1D; GLUCOSE,POINT OF CARE 354 MG/DL (70-110)
[2024-07-28] VITALS (11 sets, daily range): BP systolic 137–149; BP diastolic 69–80; PULSE 91–110; RESP 16–20; TEMP 98–98.6; O2SAT 95–100
[2024-07-28 07:15] LABS: ANION GAP 6 mmol/L (8-16); CALCIUM, TOTAL 7.8 mg/dL (8.8-10.5); CARBON DIOXIDE 31 mmol/L (22-29); CHLORIDE 101 mmol/L (98-107); CREATININE 0.77 mg/dL (0.60-1.30); GLOMERULAR FILTR. RATE CALC > 60 mL/min (>60); GLUCOSE,RANDOM 268 mg/dL (70-110); PHOSPHORUS 1.6 mg/dL (2.5-4.9); SODIUM SERUM 138 mmol/L (136-145); UREA NITROGEN, BLOOD 13 mg/dL (7-18)
[2024-07-28 07:29] LABS: POTASSIUM 2.8 mmol/L (3.5-5.1)
[2024-07-28 08:11] LABS: GLUCOMETER DEV NAME(LOC) 5N.1D; GLUCOSE,POINT OF CARE 273 MG/DL (70-110)
[2024-07-28] MEDS: POTASSIUM CHL 10 MEQ/WATER 50 ML IV PRN (08:30)
[2024-07-28] MEDS ORDERED: SODIUM CHLORIDE 0.9% 250 ML IV ONE (09:58)
[2024-07-28] MEDS: SODIUM,POTASSIUM PHOSPHATES POWDER PACKET PO SCH (10:09)
[2024-07-28] MEDS ORDERED: MAGNESIUM OXIDE 400 MG TABLET PO PRN (11:00)
[2024-07-28] MEDS ORDERED: MAGNESIUM SULFATE 4 GM/WATER 100 ML IV PRN (11:00)
[2024-07-28 11:54] LABS: ALBUMIN 2.6 g/dL (3.4-5.0)
[2024-07-28] MEDS: MAGNESIUM SULFATE 2 GM/WATER 50 ML IV ONE (11:57)
[2024-07-28] MEDS: MAGNESIUM SULFATE 2 GM/WATER 50 ML IV PRN (12:00)
[2024-07-28 13:51] LABS: GLUCOMETER DEV NAME(LOC) 5N.1D; GLUCOSE,POINT OF CARE 266 MG/DL (70-110)
[2024-07-28] MEDS: POTASSIUM CHLORIDE 20 MEQ ER TABLET PO PRN (16:15)
[2024-07-28] MEDS: ATORVASTATIN CALCIUM 10 MG TABLET PO SCH (20:25)
[2024-07-28] MEDS: HYDROCORTISONE SOD SUCC 100 MG/2 ML VIAL IVP SCH (22:30)
[2024-07-29] VITALS (10 sets, daily range): BP systolic 130–149; BP diastolic 70–81; PULSE 64–94; RESP 16–18; TEMP 97.8–98.3; O2SAT 97–100
[2024-07-29 00:51] LABS: GLUCOMETER DEV NAME(LOC) 5N.2C; GLUCOSE,POINT OF CARE 317 MG/DL (70-110)
[2024-07-29 00:51] LABS: GLUCOMETER DEV NAME(LOC) 5N.2C; GLUCOSE,POINT OF CARE 375 MG/DL (70-110)
[2024-07-29 06:51] LABS: BASOPHILS % (AUTO) 1.4 % (0.0-2.0); EOSINOPHILS % (AUTO) 0.4 % (1.0-6.0); HEMATOCRIT 32.2 % (36-46); HEMOGLOBIN 10.9 g/dL (12.0-16.0); LYMPHOCYTES # (AUTO) 1.1 K/uL (1.0-4.8); LYMPHOCYTES % (AUTO) 16.8 % (22.0-44.0); MEAN CORPUSCULAR HEMOGLOBIN 33.9 pg (26.0-34.0); MEAN CORPUSCULAR VOLUME 100 fL (80-100); MONOCYTES # (AUTO) 0.3 K/uL (0.1-1.0); MONOCYTES % (AUTO) 5.3 % (2.0-9.0); NEUTROPHILS # (AUTO) 4.9 K/uL (1.8-7.7); NEUTROPHILS % (AUTO) 76.1 % (40.0-70.0); PLATELET COUNT (AUTO) 242 K/uL (150-450); RED BLOOD CELL COUNT(AUTO) 3.22 MIL/uL (4.00-5.20); RED CELL DISTRIBUTION WIDTH 15.2 % (11.5-14.5); WHITE BLOOD COUNT (AUTO) 6.5 K/uL (4.5-11.0)
[2024-07-29 06:57] LABS: ANION GAP 5 mmol/L (8-16); CARBON DIOXIDE 34 mmol/L (22-29); CHLORIDE 99 mmol/L (98-107); GLOMERULAR FILTR. RATE CALC > 60 mL/min (>60); GLUCOSE,RANDOM 292 mg/dL (70-110); PHOSPHORUS 1.7 mg/dL (2.5-4.9); POTASSIUM 4.1 mmol/L (3.5-5.1); SODIUM SERUM 138 mmol/L (136-145); UREA NITROGEN, BLOOD 15 mg/dL (7-18)
[2024-07-29] MEDS: SODIUM,POTASSIUM PHOSPHATES POWDER PACKET PO SCH (09:29)
[2024-07-29 09:39] LABS: SPECIMENTYPE,BODY FLUID THORAV
[2024-07-29 10:27] LABS: GLUCOMETER DEV NAME(LOC) 5N.1D; GLUCOSE,POINT OF CARE 288 MG/DL (70-110)
[2024-07-29 12:22] LABS: APPEARANCE,SPUN,BODY FLUID CLEAR (CLEAR); APPEARANCE,UNSPUN,BODY FLUID CLOUDY (CLEAR)
[2024-07-29 12:23] LABS: BASOPHILS,BODY FLUID 0 %; BODY FLUID RBC 77.8 /cu. mm.; COLOR,BODY FLUID YELLOW (LT YELLOW); EOSINOPHILS,BF (ANAL) 0 %; LYMPHOCYTES,BODY FLUID 88 %; MONOCYTES,BODY FLUID 9 %; NEUTROPHILS,BODY FLUID 3 %; TOTAL VOLUME,BODY FLUID 170 mL; WBC, BODY FLUID 33.89 /cu. mm.
[2024-07-29 16:36] LABS: GLUCOMETER DEV NAME(LOC) 5N.2C; GLUCOSE,POINT OF CARE 350 MG/DL (70-110)
[2024-07-29 17:26] LABS: GLUCOMETER DEV NAME(LOC) 5N.1D; GLUCOSE,POINT OF CARE 355 MG/DL (70-110)
[2024-07-29 19:50] LABS: CREATININE,URINE RANDOM 6.1 mg/dL (30.0-125.0)
[2024-07-30] VITALS (7 sets, daily range): BP systolic 113–133; BP diastolic 59–75; PULSE 69–96; RESP 17–18; TEMP 98.3–98.8; O2SAT 97–100
[2024-07-30 06:01] LABS: GLUCOMETER DEV NAME(LOC) 5N.2C; GLUCOSE,POINT OF CARE 321 MG/DL (70-110)
[2024-07-30 07:11] LABS: ANION GAP 5 mmol/L (8-16); CALCIUM, TOTAL 7.6 mg/dL (8.8-10.5); CARBON DIOXIDE 33 mmol/L (22-29); CHLORIDE 99 mmol/L (98-107); GLOMERULAR FILTR. RATE CALC > 60 mL/min (>60); GLUCOSE,RANDOM 260 mg/dL (70-110); POTASSIUM 3.4 mmol/L (3.5-5.1); SODIUM SERUM 137 mmol/L (136-145); UREA NITROGEN, BLOOD 15 mg/dL (7-18)
[2024-07-30 07:15] LABS: BASOPHILS % (AUTO) 0.3 % (0.0-2.0); EOSINOPHILS % (AUTO) 7.9 % (1.0-6.0); HEMATOCRIT 31.6 % (36-46); HEMOGLOBIN 10.7 g/dL (12.0-16.0); LYMPHOCYTES # (AUTO) 1.7 K/uL (1.0-4.8); LYMPHOCYTES % (AUTO) 20.3 % (22.0-44.0); MEAN CORPUSCULAR HEMOGLOBIN 33.9 pg (26.0-34.0); MEAN CORPUSCULAR VOLUME 100 fL (80-100); MONOCYTES # (AUTO) 0.7 K/uL (0.1-1.0); MONOCYTES % (AUTO) 8.2 % (2.0-9.0); NEUTROPHILS # (AUTO) 5.2 K/uL (1.8-7.7); NEUTROPHILS % (AUTO) 63.3 % (40.0-70.0); PLATELET COUNT (AUTO) 233 K/uL (150-450); RED BLOOD CELL COUNT(AUTO) 3.17 MIL/uL (4.00-5.20); RED CELL DISTRIBUTION WIDTH 15.7 % (11.5-14.5); WHITE BLOOD COUNT (AUTO) 8.3 K/uL (4.5-11.0)
[2024-07-30] MEDS: HYDROCORTISONE SOD SUCC 100 MG/2 ML VIAL IVP SCH (08:35)
[2024-07-30] MEDS: POTASSIUM PHOS,M-BASIC-D-BASIC 20 MEQ in DEXTROSE 5%-WATER 100 ML IV ONE (10:01)
[2024-07-30 13:10] LABS: GLUCOMETER DEV NAME(LOC) 5N.1D; GLUCOSE,POINT OF CARE 377 MG/DL (70-110)
[2024-07-31] VITALS (12 sets, daily range): BP systolic 115–152; BP diastolic 58–73; PULSE 89–107; RESP 16–19; TEMP 98–98.5; O2SAT 95–100
[2024-07-31 03:46] LABS: GLUCOMETER DEV NAME(LOC) 5N.2C; GLUCOSE,POINT OF CARE 332 MG/DL (70-110)
[2024-07-31 03:50] LABS: GLUCOMETER DEV NAME(LOC) 5N.2C; GLUCOSE,POINT OF CARE 316 MG/DL (70-110)
[2024-07-31 06:42] LABS: BASOPHILS % (AUTO) 0.2 % (0.0-2.0); EOSINOPHILS % (AUTO) 14.4 % (1.0-6.0); HEMATOCRIT 31.9 % (36-46); HEMOGLOBIN 10.8 g/dL (12.0-16.0); LYMPHOCYTES # (AUTO) 1.4 K/uL (1.0-4.8); LYMPHOCYTES % (AUTO) 16.9 % (22.0-44.0); MEAN CORPUSCULAR HEMOGLOBIN 34.1 pg (26.0-34.0); MEAN CORPUSCULAR VOLUME 101 fL (80-100); MONOCYTES # (AUTO) 0.7 K/uL (0.1-1.0); MONOCYTES % (AUTO) 8.2 % (2.0-9.0); NEUTROPHILS # (AUTO) 5.1 K/uL (1.8-7.7); NEUTROPHILS % (AUTO) 60.3 % (40.0-70.0); PLATELET COUNT (AUTO) 230 K/uL (150-450); RED BLOOD CELL COUNT(AUTO) 3.18 MIL/uL (4.00-5.20); WHITE BLOOD COUNT (AUTO) 8.5 K/uL (4.5-11.0)
[2024-07-31 06:52] LABS: ANION GAP 4 mmol/L (8-16); CALCIUM, TOTAL 7.9 mg/dL (8.8-10.5); CARBON DIOXIDE 34 mmol/L (22-29); CHLORIDE 99 mmol/L (98-107); CREATININE 0.72 mg/dL (0.60-1.30); GLOMERULAR FILTR. RATE CALC > 60 mL/min (>60); GLUCOSE,RANDOM 280 mg/dL (70-110); POTASSIUM 3.7 mmol/L (3.5-5.1); SODIUM SERUM 137 mmol/L (136-145); UREA NITROGEN, BLOOD 14 mg/dL (7-18)
[2024-07-31 08:35] LABS: RBC MORPHOLOGY COMMENT ABNORMAL RBC MORPH
[2024-07-31] MEDS: ENALAPRIL MALEATE 2.5 MG TABLET PO SCH (08:54)
[2024-07-31] MEDS: AmLODIPine BESYLATE 5 MG TABLET PO SCH ×2 (08:55→20:38)
[2024-07-31] MEDS ORDERED: SODIUM CHLORIDE 0.9% 250 ML IV ONE (09:37)
[2024-07-31 14:36] LABS: GLUCOMETER DEV NAME(LOC) 5N.2C; GLUCOSE,POINT OF CARE 286 MG/DL (70-110)
[2024-07-31 14:36] LABS: GLUCOMETER DEV NAME(LOC) 5S.2D; GLUCOSE,POINT OF CARE 402 MG/DL (70-110)
[2024-07-31 18:10] LABS: GLUCOMETER DEV NAME(LOC) 5N.1D; GLUCOSE,POINT OF CARE 395 MG/DL (70-110)
[2024-08-01 00:41] LABS: GLUCOMETER DEV NAME(LOC) 5S.2D; GLUCOSE,POINT OF CARE 389 MG/DL (70-110)
[2024-08-01 04:49] VITALS: BP 132/69; PULSE 90; RESP 17; TEMP 98.5; O2SAT 98
[2024-08-01 07:09] LABS: ANION GAP 4 mmol/L (8-16); CALCIUM, TOTAL 7.8 mg/dL (8.8-10.5); CARBON DIOXIDE 33 mmol/L (22-29); CHLORIDE 100 mmol/L (98-107); CREATININE 0.74 mg/dL (0.60-1.30); GLOMERULAR FILTR. RATE CALC > 60 mL/min (>60); GLUCOSE,RANDOM 230 mg/dL (70-110); PHOSPHORUS 2.2 mg/dL (2.5-4.9); POTASSIUM 3.5 mmol/L (3.5-5.1); SODIUM SERUM 137 mmol/L (136-145); UREA NITROGEN, BLOOD 12 mg/dL (7-18)
[2024-08-01 07:30] VITALS: PULSE 80; RESP 16; O2SAT 96; O2SAT 98
[2024-08-01 08:07] LABS: COMPLEMENT C3 120 mg/dL (82-167); COMPLEMENT C4 37 mg/dL (12-38)
[2024-08-01 08:18] VITALS: BP 131/63; PULSE 86; RESP 18; TEMP 98.1; O2SAT 99
[2024-08-01] MEDS: SODIUM,POTASSIUM PHOSPHATES POWDER PACKET PO SCH (10:04)
[2024-08-01 11:46] LABS: GLUCOMETER DEV NAME(LOC) 5N.1D; GLUCOSE,POINT OF CARE 233 MG/DL (70-110)
[2024-08-01 12:34] VITALS: BP 133/60; PULSE 86; RESP 19; TEMP 98; O2SAT 99
[2024-08-01 16:36] VITALS: BP 127/53; PULSE 94; RESP 16; TEMP 98.2; O2SAT 98
[2024-08-01] MEDS: INSULIN LISPRO 100 UNITS/ML SQ ONE (18:18)
[2024-08-01 19:26] VITALS: BP 124/54; PULSE 95; RESP 18; TEMP 98.6; O2SAT 98
[2024-08-01 20:51] LABS: GLUCOMETER DEV NAME(LOC) 5N.1D; GLUCOSE,POINT OF CARE 460 MG/DL (70-110)
[2024-08-01 20:51] LABS: GLUCOMETER DEV NAME(LOC) 5N.1D; GLUCOSE,POINT OF CARE 308 MG/DL (70-110)
[2024-08-02] VITALS (9 sets, daily range): BP systolic 115–144; BP diastolic 60–68; PULSE 76–96; RESP 16–22; TEMP 98–98.5; O2SAT 94–99
[2024-08-02 00:31] LABS: GLUCOMETER DEV NAME(LOC) 5N.1D; GLUCOSE,POINT OF CARE 308 MG/DL (70-110)
[2024-08-02 06:06] LABS: GLUCOMETER DEV NAME(LOC) 5S.2D; GLUCOSE,POINT OF CARE 283 MG/DL (70-110)
[2024-08-02 06:37] LABS: ANION GAP 4 mmol/L (8-16); CARBON DIOXIDE 33 mmol/L (22-29); CHLORIDE 100 mmol/L (98-107); CREATININE 0.81 mg/dL (0.60-1.30); GLOMERULAR FILTR. RATE CALC > 60 mL/min (>60); GLUCOSE,RANDOM 267 mg/dL (70-110); POTASSIUM 3.7 mmol/L (3.5-5.1); SODIUM SERUM 137 mmol/L (136-145); UREA NITROGEN, BLOOD 18 mg/dL (7-18)
[2024-08-02 08:07] LABS: IGA (IFE) 240 mg/dL (64-422); IGM (IMMUNOFIXATION) 53 mg/dL (26-217)
[2024-08-02] MEDS: AmLODIPine BESYLATE 5 MG TABLET PO SCH (08:44)
[2024-08-02] MEDS ORDERED: [UNRECOGNIZED DRUG - CODE] PO (11:36)
[2024-08-02] MEDS ORDERED: AMLO-257 PO (11:36)
[2024-08-02] MEDS ORDERED: HYDR-3818 PO (11:40)
[2024-08-02] MEDS: INSULIN GLARGINE,HUM.REC.ANLOG 100 UNITS/ML SQ SCH (11:45)
[2024-08-02] MEDS ORDERED: INSU100V SQ (11:45)
[2024-08-02] MEDS: INSULIN LISPRO 100 UNITS/ML SQ ONE (11:46)
[2024-08-02 12:40] LABS: GLUCOMETER DEV NAME(LOC) 5S.2D; GLUCOSE,POINT OF CARE 431 MG/DL (70-110)
[2024-08-02] MEDS ORDERED: SODIUM,POTASSIUM PHOSPHATES POWDER PACKET PO SCH (14:00)
[2024-08-02 18:56] LABS: GLUCOMETER DEV NAME(LOC) 5N.1D; GLUCOSE,POINT OF CARE 375 MG/DL (70-110)
[2024-08-04 12:07] LABS: ALBUMIN URINE (ELP) 48.4 %; ALPHA-1 URINE (ELP) 7.5 %; TOTAL PROTEIN URINE 33.3 mg/dL (Not Estab.)
[2024-08-05 10:07] LABS: ALBUMIN (PEP) 2.6 g/dL (2.9-4.4); ALBUMIN/GLOBULIN RAITO (PEP) 0.9 (0.7-1.7); ALPHA-1 GLOBULINS(PEP) 0.2 g/dL (0.0-0.4); ALPHA-2 GLOBULINS (PEP) 0.8 g/dL (0.4-1.0); GAMMA GLOBULINS (PEP) 0.8 g/dL (0.4-1.8); GLOBULIN TOTAL (PEP) 2.8 g/dL (2.2-3.9); M-SPIKE (PEP) Not Observed g/dL (Not Observed)
[2024-08-05 13:07] LABS: TOTAL PROTEIN,BODY FLUID,REF 2.4 g/dL
== END 2024-08-02 15:15 | disposition home health service (06) | DRG 682 ==
LOC: EMS 15:21 → EDH 16:32 → ICU 22:05 → 5S 07-27 10:00
PROVIDERS: ADMIT Internal Medicine; ATTEND Internal Medicine
PROC: 06HY33Z Insertion of Infusion Device into Lower Vein, Percutaneous Approach (ICD-10-PCS; 2024-07-22)
PROC: B54BZZA Ultrasonography of Right Lower Extremity Veins, Guidance (ICD-10-PCS; 2024-07-22)
PROC: 5A1945Z Respiratory Ventilation, 24-96 Consecutive Hours (ICD-10-PCS; principal; 2024-07-23)
PROC: 0BH17EZ Insertion of Endotracheal Airway into Trachea, Via Natural or Artificial Opening (ICD-10-PCS; 2024-07-23)
PROC: 5A09357 Assistance with Respiratory Ventilation, Less than 24 Consecutive Hours, Continuous Positive Airway Pressure (ICD-10-PCS; 2024-07-23)
PROC: 05HB33Z Insertion of Infusion Device into Right Basilic Vein, Percutaneous Approach (ICD-10-PCS; 2024-07-24)
PROC: 0W9B3ZZ Drainage of Left Pleural Cavity, Percutaneous Approach (ICD-10-PCS; 2024-07-29)
DX: N17.9 Acute kidney failure, unspecified (principal); I50.43 Acute on chronic combined systolic (congestive) and diastolic (congestive) heart failure; J18.9 Pneumonia, unspecified organism; J96.01 Acute respiratory failure with hypoxia; J91.8 Pleural effusion in other conditions classified elsewhere; I13.0 Hypertensive heart and chronic kidney disease with heart failure and stage 1 through stage 4 chronic kidney disease, or unspecified chronic kidney disease; E87.1 Hypo-osmolality and hyponatremia; E27.40 Unspecified adrenocortical insufficiency; N13.30 Unspecified hydronephrosis; E87.5 Hyperkalemia; R00.1 Bradycardia, unspecified; E11.65 Type 2 diabetes mellitus with hyperglycemia; I27.20 Pulmonary hypertension, unspecified; I50.82 Biventricular heart failure; E11.22 Type 2 diabetes mellitus with diabetic chronic kidney disease; E03.9 Hypothyroidism, unspecified; I95.9 Hypotension, unspecified; D64.9 Anemia, unspecified; E87.6 Hypokalemia; I08.1 Rheumatic disorders of both mitral and tricuspid valves; N18.9 Chronic kidney disease, unspecified; E83.39 Other disorders of phosphorus metabolism; E78.00 Pure hypercholesterolemia, unspecified; I25.10 Atherosclerotic heart disease of native coronary artery without angina pectoris; Z90.710 Acquired absence of both cervix and uterus; Z79.4 Long term (current) use of insulin; Z83.3 Family history of diabetes mellitus; Z86.73 Personal history of transient ischemic attack (TIA), and cerebral infarction without residual deficits; Z79.899 Other long term (current) drug therapy
CPT/HCPCS: 32555; 36245; 36569; 36573; 36600; 71045; 71250; 76770; 76937; 76942; 80048; 80076; 81003; 82009; 82010; 82040; 82465; 82533; 82550; 82570; 82784; 82805; 82945; 82962; 83036; 83605; 83615; 83735; 83880; 83935; 83986; 84100; 84132; 84133; 84155; 84156; 84157; 84165; 84166; 84300; 84443; 84484; 85025; 85730; 86160; 86162; 86334; 87015; 87040; 87075; 87081; 87101; 87205; 87206; 87804; 88108; 88305; 89051; 92610; 93005; 93306; 94002; 94003; 94640; 94660; 97110; 97116; 97163; 97530; 99291; G0480; G0481; J0456; J0461; J0610; J0696; J0834; J1265; J1644; J1720; J1815; J2370; J2704; J3010; J3475; J3480; J3490; J7030; J7050; J7060; 36415-L1; 36415-TC; 87070; J7613